=== PATIENT | male | born 1965 | race Caucasian/White ===

== ENCOUNTER 2019-02-17 13:15 | Inpatient (IN) | payer MEDICAID, SELFPAY ==
[2019-02-17] VITALS (68 sets, daily range): BP systolic 52–119; BP diastolic 32–63; PULSE 52–122; RESP 11–20; TEMP 36.8–37.2; O2SAT 87–98
--- NOTE | 2019-02-17 13:18 | NUR.NOTE ---
Nursing Note: pt has been experiencing SOB since last night when EMS states when they arrived PT was sating at 100% on 2 L pt switched to 1L and o2 sat leveled of to 98% pt currently on RA for past 15 min and o2 at 94% lung sounds diminished. noted 2+ pitting edema bilaterally in legs
--- NOTE | 2019-02-17 13:19 | ED.GENADUL_ITS ---
Discharge Plan Disposition Patient Disposition: [facility] INPATIENT Condition: Serious Discharge Details Chief Complaint: SOB Clinical Impression: Anasarca, CHF (congestive heart failure) Primary Care Provider: [facility] ED Provider: Netta Salgado Home Meds and New Rx's Prescriptions: No Action atorvastatin 40 mg Tablet 40 mg PO HS RF: 0 acetaminophen 325 mg Tablet 325 mg PO Q6H PRNRF: 0 carvedilol 3.125 mg Tablet 3.125 mg PO BID RF: 0 citalopram 20 mg Tablet 20 mg PO DAILY AM RF: 0 furosemide [Lasix] 80 mg Tablet 160 mg PO BID RF: 0 docusate sodium [Colace] 100 mg Capsule 10 mg PO BOLUSMAXRATE RF: 0 Eliquis 5 mg Tablet 5 mg PO BID RF: 0 polyethylene glycol 3350 [Miralax] 17 gram Powder In Packet 17 g PO DAILY AM RF: 0 metolazone 5 mg Tablet 5 mg PO BID RF: 0 metolazone 5 mg Tablet 5 mg PO ONCE RF: 0 levothyroxine 25 mcg Tablet 25 mcg PO DAILY RF: 0 levothyroxine 200 mcg Tablet 200 mcg PO DAILY RF: 0 pregabalin [Lyrica] 200 mg Capsule 200 mg PO TID RF: 0 Protein Nutritional Shake Liquid 1 ml RF: 0 sennosides [senna] 8.6 mg Tablet 2 mg PO PRN PRNRF: 0 nystatin [Nystop] 100,000 unit/gram Powder TOPICAL DAILY RF: 0 Medical Decision Making Patient is a 53-year-old male, currently residing [facility], with chief complaint of shortness of breath. Patient has been at their residence for the past 4 days. Was recently discharged from [facility] where he reports he was hospitalist for 4 weeks with CHF exacerbation. Patient has history of hyperlipidemia, hypertension, diastolic CHF, hepatitis C, chronic kidney disease, hypothyroidism, malnutrition, venous stasis, chronic liver failure, diabetes with peripheral neuropathy. Patient is anticoagulated on Eliquis secondary to elevated d-dimer. Currently on carvedilol. They are following a strict fluid restriction to 1.5 L daily and monitoring the patient's fluid overload. They report that over the initial 2 days there, patient had gained approximately 5.5 pounds. The rate of weight gain has slowed down however, over the course of last night, the patient has become increasingly dyspneic. He reports it is much worse when laying supine and made it difficult for him to sleep last night. Has notable swelling with weeping of the bilateral lower extremities. Patient reports that today the swelling in the legs has decreased. Also has had swelling in the scrotum and abdomen. Has self-reported chronic right upper extremity edema as well. Denies any fevers or chills. No cough. Reports that at this time his shortness of breath is a feeling improved. Reported to have O2 of 86% on room air at the halfway, responded well to 2 L nasal cannula. Brought in via EMS on 2 L nasal cannula On exam, patient appears chronically ill. He is speaking in full sentences and does not appear to be acutely respiratory distress at this time. Crackles and diminished lung sounds. He does have a crescendo decrescendo systolic murmur and displaced PMI on cardiac exam. He has good distal pulses but notable edema in the right upper extremity, bilateral lower externally's. Pulses are equal bilaterally in upper and lower extremities. No palpable cord to suggest DVT. Abdomen is firm and edematous with pitting edema as well. He has notable scrotal swelling. Patient does appear very fatigued. He is a poor historian and is not able to give me much of his past medical history. He does report that they did perform an echo while at [place]. We have requested the records. Will obtain EKG and labs. He is not currently requiring any nasal cannula and is maintaining oxygen mid 90s EKG was reviewed by Dr. Lopez. Patient is noted to have low voltage and incomplete LBBB, frequent ectopic beats. Rate 76. No acute ischemic changes. Reviewed labs from [place]. Of note, patient similar presentation to the emergency department. Left popliteal vein on ultrasound was equivocal for thrombosis. Was unable to do CTA secondary to renal function. Did have a VQ scan on 01/28/2019 which did not show evidence of PE. Patient is noted to have protein C deficiency and will be chronically anticoagulated. CT was performed 02/07/2019 at that time, patient had atelectasis and bilateral pleural effusions, small left size moderate in the right. During the admission, patient had anasarca with evidence of severe volume overload and acute becomes a heart. Echo was performed on 12/10/2018. At that time LV function was performed with an EF of 55. He notes mild dilation in size. LV function preserved with apical hypokinesis. Left atrium moderately dilated, right atrium severely dilated. Mild aortic stenosis with a valve area of 1.7 1.8 cm, peak gradient 24. PA pressure is normal. Ascending aorta is mildly dilated size of 3.8 cm, this is no change from previous. Did note mildly dilated LV at 5.9 cm with concentric LVH. Global systolic function preserved. Posterior lateral apex hypokinetic. Inferoseptal wall mildly hypokinetic. CXR reviewed by Dr. Dubois who called to discuss results. Large bilateral effusions, cardiomegally, large amount of pulmonary edema. Labs reviewed. No leukocytosis. Patient is anemic at 11.1. INR is within normal limits. Carbon dioxide is elevated at 37.3. He does not have an anion gap. BUN is 122, do not comparison. We will request lab from [facility]. Creatinine is 2. GFR 34. Calcium 7.8, will replenish calcium gluconate. AST is 9, ALT is less than 6. Patient's alk phos is 51, albumin 2.4. BNP is 11,500. Troponin less than 0.05. TSH is elevated but free T4 within normal limits. Discussed these findings with the patient. With a recent echo showing fairly maintained ejection fraction, I am unclear as to where the source of his anasarca is. I am concerned with the low ALT and AST that this may be cirrhotic liver. Patient does have known history of CAD, and unclear as if he has had treatment for this. He is responding well to Lasix. Has received 40 mg thus far. Will give another 40. Patient receiving calcium gluconate. Do not feel the patient is safe to go back to [facility] at this time with his clearly deteriorating state. Further evaluation, and determination of the underlying source of his anasarca is appropriate. I am unclear as to why he is having a unilateral upper extremity edema, concern for possible DVT in the right upper extremity. I do not see that they have performed an ultrasound of the upper extremity as directed. Plan for admission. Do not see any imaging of the patient liver or abdomen. Consult with Dr. Shaver who agrees to admission. He came to evaluate the patient in the department and will admit to ICU HPI General Mode of arrival: EMS . Date/Time Provider Initiated Documentation: 02/17/19 13:19 . Limitations to Documentation: no limitations . Information obtained by: patient, family, EMS and RN notes reviewed . HPI Narrative: Patient is a 53-year-old male who resides at [facility], presenting today with chief complaint of dyspnea on exertion that began last night. Patient is currently being treated for CHF after recent hospitalization. He is working with physical therapy to regain his strength. Patient is currently on Lasix to help with his persistent edema. Patient has gained approximately 6 pounds since admission to [facility] 5 days ago. He was initially on 80 mg of Lasix twice daily but was increased to 162 days ago. The weight gain has decreased but the shortness of breath began to increase in severity last night. He denies any chest pain. No fevers. Denies any cough. Patient is anticoagulated on Eliquis as he has a protein C deficiency. Has been taking his medications as prescribed. Patient is fairly unclear as to his medi barb history. Related Data Home Medications Medication Instructions Recorded Confirmed acetaminophen 325 mg PO Q6H PRN 02/17/19 02/17/19 apixaban [Eliquis] 5 mg PO BID 02/17/19 02/17/19 atorvastatin 40 mg PO HS 02/17/19 02/17/19 carvedilol 3.125 mg PO BID 02/17/19 02/17/19 citalopram 20 mg PO DAILY AM 02/17/19 02/17/19 docusate sodium [Colace] 10 mg PO BOLUSMAXRATE 02/17/19 02/17/19 food supplemt, lactose-reduced 1 ml 02/17/19 [Protein Nutritional Shake] furosemide [Lasix] 160 mg PO BID 02/17/19 02/17/19 levothyroxine 25 mcg PO DAILY 02/17/19 02/17/19 levothyroxine 200 mcg PO DAILY 02/17/19 02/17/19 metolazone 5 mg PO BID 02/17/19 02/17/19 metolazone 5 mg PO ONCE 02/17/19 02/17/19 nystatin [Nystop] TOPICAL DAILY 02/17/19 polyethylene glycol 3350 [Miralax] 17 g PO DAILY AM 02/17/19 02/17/19 pregabalin [Lyrica] 200 mg PO TID 02/17/19 02/17/19 sennosides [senna] 2 mg PO PRN PRN 02/17/19 02/17/19 Allergies Allergy/AdvReac Type Severity Reaction Status Date / Time No Known Allergies Allergy Unverified 02/17/19 13:39 Review of Systems Constitutional Reports as per HPI, Denies chills, Denies fever(s), Denies headache(s), Denies lethargy and Denies poor appetite Eyes Denies change in vision ENT Denies dizziness and Denies headache(s) Cardiovascular Reports as per HPI, Denies chest pain, Denies chest pain at rest, Denies chest pain with activity, Denies syncope, Denies rapid heart rate, Reports pedal edema, Reports edema, Denies irregular heart rhythm, Denies lightheadedness, Denies radiating jaw, neck or arm pain, Denies palpitations, Reports dyspnea, Reports dyspnea on exertion, Reports orthopnea and Reports paroxysmal nocturnal dyspnea Respiratory Reports as per HPI, Denies chest congestion, Denies cough, Denies pain on inspiration, Denies pain with cough, Reports dyspnea, Reports dyspnea on exertion and Denies wheezing Gastrointestinal Reports as per HPI, Denies abdominal pain, Denies diarrhea, Denies nausea and Denies vomiting Genitourinary Denies system reviewed and no additional complaints, except as docu (denies change in urinary habits) Musculoskeletal Reports as per HPI and Denies back pain Integumentary/Breasts Reports as per HPI and Denies rash Neurologic Reports as per HPI, Denies dizziness, Denies syncope and Denies headache(s) Endocrine Denies palpitations Allergic/Immunologic Denies wheezing [facility] Medical History Acute embolism and thrombosis of unspecified deep veins of left distal lower extremity (Acute) Acute embolism and thrombosis of unspecified deep veins of right lower extremity (Acute) Cardiomyopathy (Acute) Chronic diastolic (congestive) heart failure (Acute) Chronic kidney disease, unspecified (Acute) Chronic viral hepatitis C (Acute) Constipation, unspecified (Acute) Hereditary and idiopathic neuropathy (Acute) Hypothyroidism (Chronic) Liver disease, unspecified (Acute) skilled nursing (current) use of anticoagulants (Acute) Pleural effusion, not elsewhere classified (Acute) Type 2 diabetes mellitus without complication (Acute) Social History (Reviewed 02/17/19 @ 16:51 by JERARDO Medina Smoking/Tobacco Use Status: Current every day Tobacco Type: cigarettes Alcohol Intake: former Drug use: Occasionally Substance use type: marijuana Do you feel safe at home: Yes Do you feel safe in your relationship?: Yes Exam Const General: cooperative, comfortable, no acute distress, well developed, frail appearing and ill appearing chronically Nutritional Appearance: malnourished and overweight (Patient appears very edematous face is cachectic) Orientation: alert, awake and oriented x3 Limitations: altered mental status HENMT Head: normal to inspection Ears: hearing grossly normal bilaterally Mouth: moist mucous membranes Chest Chest: normal inspection of the chest, normal palpation of entire chest wall and no crepitus Resp Effort & Inspection: normal respiratory effort, able to speak in complete sentences and no respiratory distress Auscultation: crackles bilaterally throughout, diminished lung sounds bilaterall y in the lower lung link, no rales, no rhonchi and no wheezes Cardio Rate: regular rate Rhythm: regular rhythm and abnormal rhythm with ectopic beats Heart Sounds: S1 normal, S2 normal and murmur systolic decrescendo, crescendo and soft GI Inspection: edema, obesity, no visible herniation, no visible pulsation and No caput medusae present Palpation: firm (Abdomen is firm with pitting edema), no guarding, not rigid and nontender Scrotum: edematous bilaterally Skin General skin exam: no rashes or lesions noted Trauma: no lacerations or abrasions Neuro General: alert, awake and oriented x3 Cognition: normal cognition Speech: speech normal Gait: gait abnormal (Unable to ambulate unassisted at this time) Extrem General: normal capillary refill, no calf tenderness and edema (Patient has bilateral lower extremity pitting edema ) Laterality: bilateral (as well as pitting edema in the right upper extremity) Psych Appearance: grossly normal and well kempt Mental Status: mental status grossly normal Speech and Movement: speech and movement normal
[2019-02-17 13:53] LABS: Abs Immature Grans 0.01 k/cumm (0.0-0.09); Absolute Basophil Count 0.01 k/cumm (0.0-0.2); Absolute Eosinophil Count 0.09 k/cumm (0.0-0.7); Absolute Lymphocyte Count 1.33 k/cumm (1.2-3.4); Absolute Monocyte Count 0.49 k/cumm (0.11-0.7); Absolute Neutrophil Count 3.06 k/cumm (1.2-6.7); Basophils % 0.2; Eosinophils % 1.8; HCT 36.7 % (40.0-50.0); HGB 11.1 g/dL (13.5-17.5); Immature Grans % 0.2; Lymphocytes % 26.7; Mean Corp. HGB Concentration 30.2 g/dL (32.0-36.0); Mean Corpuscular Hemoglobin 31.2 pg (27.0-33.0); Mean Corpuscular Volume 103.1 fL (80-95); Mean Platelet Volume 12.4 fL (8.0-11.0); Monocytes % 9.8; Neutrophils % 61.3; Platelet Count 187 x1000/uL (130-400); RBC 3.56 m/cumm (4.50-6.00); RBC Distribution Width 14.9 % (11.8-14.1); White Blood Cell Count 4.99 k/cumm (4.4-10.8)
--- NOTE | 2019-02-17 14:00 | DI.RAD_ITS ---
SYMPTOM/DIAGNOSIS: SOB AP AND LATERAL CHEST: The heart is enlarged. There are large bilateral pleural effusions. There are diffuse bilateral intrapulmonary interstitial infiltrates. The findings are consistent with CHF.
[2019-02-17] MEDS: Furosemide 40 MG/4 ML VIAL IVP ×2 (14:07→16:10)
[2019-02-17 14:19] LABS: AST 9 U/L (15-37); Albumin 2.4 g/dL (3.4-5.0); Alkaline Phosphatase 51 U/L (46-116); Anion Gap 4.7 mmol/L (3-11); Bilirubin, Total 0.4 mg/dL (0.2-1.0); CO2 37.3 mmol/L (21.0-32.0); CREATININE 2.02 mg/dL (0.70-1.30); Calcium 7.8 mg/dL (8.5-10.1); Chloride 100 mmol/L (98-107); Estimated GFR 34.86 (mL/min/1.73m2); Glucose 138 mg/dL (70-100); Magnesium 2.3 mg/dL (1.8-2.4); NT-proBNP 11522 pg/mL; Potassium 4.1 mmol/L (3.5-5.1); Sodium 142 mmol/L (136-145); TSH (W/Ref FT4) 5.01 uIU/mL (0.36-3.74)
[2019-02-17 14:28] LABS: INR 1.1 (0.9-1.1); PTT Activated 26.2 sec (21.0-31.4); Prothrombin Time 11.4 sec (9.3-11.0)
[2019-02-17 14:31] LABS: BUN 122 mg/dL (7-18); Troponin I < 0.05 ng/mL (0.00-0.06)
[2019-02-17 14:32] LABS: ALT < 6 U/L (16-63)
[2019-02-17 14:49] LABS: FREE T4 1.04 ng/dL (0.76-1.46)
[2019-02-17] MEDS: Calcium Gluconate 4.65 MEQ/10 ML VIAL 4.65 MG IVP (16:10)
--- NOTE | 2019-02-17 17:08 | W.PM.HP.N ---
Date of service: 02/17/19 Time of Service: 17:10 Assessment and Plan (1) Anasarca: Current visit: Yes Status: Acute Etiology is not clear from information presently available. Echocardiogram from December, performed at [facility], showed preserved LV function, preserved RV function with mild hypokinesis only, no major valvular disease. Notation made that an echo from March 2018 showed an EF of 45 to 50% with wall motion abnormalities. Perhaps he has an ischemic cardiomyopathy? He has a history of untreated hepatitis C but no label of cirrhosis, no imaging studies have shown large ascites, no history to suggest GI bleed from varices. He is not known to have nephrotic range proteinuria, his BUN is elevated disproportionately above his creatinine likely due to efforts at aggressive diuresis. Is unclear why aggressive diuresis with oral medications is failing. It is unknown if he has had recurrent DVTs or pulmonary embolism, seems unlikely given chronic anticoagulation with apixaban. Lyrica may be contributing some to his edema. From a diagnostic standpoint will arrange for echocardiogram and ultrasound of liver. Therapeutically I am placing him on a heparin drip given his renal insufficiency and uncertainty of adequate anticoagulation with apixaban. I am placing him on a furosemide drip. I am going to continue his outpatient dose of carvedilol. Monitor clinical response, renal function and electrolytes. (2) Acute exacerbation of congestive heart failure: Current visit: Yes Status: Acute Diagnostic work-up and management as noted above (3) Acute kidney injury superimposed on chronic kidney disease: Current visit: Yes Status: Acute Abdominal ultrasound to assess for any obstruction. Certainly has a large prerenal component with efforts at diuresis. Check urinalysis. Follow urine output, BUN and creatinine by lab. (4) Diabetic peripheral neuropathy: Current visit: Yes Status: Acute Presently minimally symptomatic. Taper Lyrica down, possibly discontinue. Monitor for exacerbation of symptoms. (5) Protein C deficiency: Current visit: Yes Status: Acute In light of acute on chronic kidney disease I am placing him on a heparin drip. (6) Chronic viral hepatitis C: Current visit: Yes Status: Acute Untreated. Unknown if he has cirrhosis. Albumin is low, INR a little bit off, transaminase levels and bilirubin unremarkable. Ultrasound to be obtained. No history of upper GI bleed. Unknown if he has varices. Continue carvedilol in the event that he does have portal hypertension. (7) Type 2 diabetes mellitus without complication: Current visit: Yes Status: Acute By patient report, recent blood sugars have been doing fine on no medication. He had been on metformin, developed GI side effects. He has been on no medication recently. Check hemoglobin A1c. Monitor fingerstick blood sugars with low-dose short acting insulin on sliding scale until we get a better sense of what his blood sugar trends are. (8) Hypothyroidism: Current visit: Yes Status: Chronic He is on a somewhat high dose of levothyroxine but TSH is elevated but free T4 is within population norm. I am not making any change in his thyroid dose at this time. History of Present Illness Chief Complaint: Shortness of breath Narrative: 53-year-old man transferred from [facility] re[facility] to the emergency room because of increasing shortness of breath and orthopnea over the past 1 to 2 days. He has been a resident at [facility] re[facility] for only 3 days, having been transferred from [facility] following 3, approximately 2-week each, admissions for anasarca. Records are limited and include diagnoses of decompensated chronic heart failure, unspecified cardiomyopathy, diastolic CHF, untreated hepatitis C, hypothyroidism, type 2 diabetes, neuropathy, renal insufficiency. His most recent hospitalization, from January 24 through February 10, included bilateral lower extremity ultrasounds, equivocal for a popliteal vein thrombosis on the left. VQ scan on January 28 had no evidence of pulmonary embolism. He was found to have protein C deficiency and it was chosen to anticoagulate him at that point. He had a chest CT February 07 showing bilateral pleural effusions small in the left moderate on the right. He was diuresed with a furosemide drip and then metolazone was added because of lack of response. He had a CT scan of the abdomen pelvis February 07 showing anasarca, bilateral pleural effusions but no significant ascites. He has hepatitis C RNA of 8890 with no referral yet for treatment of chronic hep C. He did not require any medications for controlling his diabetes. He has a chronic diabetic neuropathy for which she has been on Lyrica for many months. His furosemide dose was doubled to 160 mg twice daily in the past 2 days and metolazone increased to 5 mg twice daily he has not lost any weight with these changes and has developed increased shortness of breath and orthopnea. He has had no chest pains, no productive cough. He does not think there has been any change in his volume or frequency of urination. He is having daily bowel movements. He has never had any blood in his stool as far as he knows. He has not had any recent fevers. No reports of melena. He was never told that he has cirrhosis. He is never had upper GI bleed. He thinks he acquired hepatitis C decades ago from IV drug use. He has not had any IV drug use for decades. He was a former binge drinker on weekends only. He is being admitted now for further evaluation as to the etiology of his anasarca and treatment thereof. Review of Systems Review of Systems No choking episodes. No trouble swallowing. No dyspepsia or dysphagia. No productive cough. No anginal type chest pains. No palpitations. No abdominal pain. No nausea, reports appetite excellent. No diarrhea, daily bowel movements. No blood in stool. No dysuria. No hematuria. Chronic swelling in the lower extremities with a few small open areas on the right and left shins. No overt bleeding. Legs feel very heavy. Bottom of his feet numb. Formally they were burning. Lyrica seems to have helped decrease the discomfort. He is walking some with a walker, slowly. All systems reviewed & are unremarkable except as noted in HPI and below PFSH Medical History (Updated 02/17/19 @ 17:15 by David Shaver MD) Acute embolism and thrombosis of unspecified deep veins of left distal lower extremity (Acute) Acute embolism and thrombosis of unspecified deep veins of right lower extremity (Acute) Anasarca (Acute) Cardiomyopathy (Acute) Chronic diastolic (congestive) heart failure (Acute) Chronic kidney disease, unspecified (Acute) Chronic viral hepatitis C (Acute) Constipation, unspecified (Acute) Diabetic peripheral neuropathy (Acute) Hereditary and idiopathic neuropathy (Acute) Hypothyroidism (Chronic) Liver disease, unspecified (Acute) intermodal dispatcher (current) use of anticoagulants (Acute) Pleural effusion, not elsewhere classified (Acute) Protein C deficiency (Acute) Type 2 diabetes mellitus without complication (Acute) Family History (Updated 02/17/19 @ 17:33 by David Shaver MD) Other Protein C deficiency Social History (Updated 02/17/19 @ 17:34 by David Shaver MD) Smoking/Tobacco Use Status: Current every day Tobacco Type: cigarettes Alcohol Intake: former Drug use: Occasionally Substance use type: marijuana What is your relationship status?: never Panel score (0-1 are the most socially isolated patients): 0 Do you feel safe at home: Yes Do you feel safe in your relationship?: Yes 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 Medications Medication Instructions Recorded Confirmed Type acetaminophen 325 mg PO Q6H PRN 02/17/19 02/17/19 History apixaban [Eliquis] 5 mg PO BID 02/17/19 02/17/19 History atorvastatin 40 mg PO HS 02/17/19 02/17/19 History carvedilol 3.125 mg PO BID 02/17/19 02/17/19 History citalopram 20 mg PO DAILY AM 02/17/19 02/17/19 History docusate sodium [Colace] 10 mg PO BOLUSMAXRATE 02/17/19 02/17/19 History food supplemt, lactose-reduced 1 ml 02/17/19 History [Protein Nutritional Shake] furosemide [Lasix] 160 mg PO BID 02/17/19 02/17/19 History levothyroxine 25 mcg PO DAILY 02/17/19 02/17/19 History levothyroxine 200 mcg PO DAILY 02/17/19 02/17/19 History metolazone 5 mg PO BID 02/17/19 02/17/19 History metolazone 5 mg PO ONCE 02/17/19 02/17/19 History nystatin [Nystop] TOPICAL DAILY 02/17/19 History polyethylene glycol 3350 [Miralax] 17 g PO DAILY AM 02/17/19 02/17/19 History pregabalin [Lyrica] 200 mg PO TID 02/17/19 02/17/19 History sennosides [senna] 2 mg PO PRN PRN 02/17/19 02/17/19 History Allergies Allergy/AdvReac Type Severity Reaction Status Date / Time No Known Allergies Allergy Unverified 02/17/19 13:39 Exam Narrative Exam Narrative: Chronically ill-appearing man, cachectic face but grossly edematous torso and extremities lying on stretcher, able to speak in full sentences and in no acute respiratory distress. Temperature 36.8 blood pressure 87/43 (reviewing [facility] notes, blood pressure fluctuates between 80 and 100 systolic) pulse 52 SaO2 on room air 93%, weight 153 kg. Eyes are a bit sunken, sclera anicteric. Edentulous, no oral lesions visible. Neck veins mildly distended to the lower quarter of the neck bilaterally. No carotid bruits heard. Diminished breath sounds at both bases with dullness to percussion, crackles in the midlung link, better aeration in the superior posterior lung link. Regular heart rhythm with 2/6 systolic ejection murmur right upper sternal border and apex, no diastolic murmur. I do not hear any S3. He has pitting edema to the lower chest wall down to his feet, progressively larger edema more distally. Bowel sounds are present. I cannot appreciate liver edge because of the abdominal wall edema. There is no shifting dullness can appreciate. He has massive edema of the scrotum and lower extremities with superficial erosions on the anterior shins but no serous fluid leaking now. His right arm has 3-4+ edema in his left arm 1-2+ with normal pulses at the wrist. Both hands are warm. Antigravity power in the upper extremities, he can move his legs but has difficulty lifting them due to the weight from edema. He has limited dorsiflexion of the left foot which she states is chronic from an ankle injury. Diminished light touch sensation in both feet. No DTRs elicited anywhere. Requires assistance to sit up. He knows he is in the hospital in [facility] and why. Results EKG shows a sinus rhythm with PVCs, incomplete left bundle branch block, low voltage, no appreciable change from the copy of ECG we have from January 24, 2019 done at [facility]. Chest x-ray cardiomegaly, poor inspiration, bilateral pleural effusions and increased interstitial markings compatible with congestive heart failure. There may be a large hiatal hernia present? Labs : 02/17/19 13:48 02/17/19 13:48 Laboratory Results - last 24 hr 02/17/19 02/17/19 02/17/19 13:40 13:48 13:48 WBC RBC Hgb Hct MCV MCH MCHC RDW Plt Count MPV Immature Gran % Neutrophils % Lymphocytes % Monocytes % Eosinophils % Basophils % Absolute Neutrophils Absolute Lymphocytes Absolute Monocytes Absolute Eosinophils Absolute Basophils PT 11.4 H INR 1.1 APTT 26.2 Sodium 142 Potassium 4.1 Chloride 100 Carbon Dioxide 37.3 H Anion Gap 4.7 BUN 122 H* Creatinine 2.02 H Estimated GFR/1.73 m2 34.86 Glucose 138 H Calcium 7.8 L Magnesium Cancelled 2.3 Total Bilirubin 0.4 AST 9 L ALT < 6 L Alkaline Phosphatase 51 Troponin I < 0.05 NT-Pro-B Natriuret Pep Cancelled 67254 H Total Protein 7.0 Albumin 2.4 L TSH 5.01 H Free T4 1.04 02/17/19 02/17/19 13:48 13:48 WBC 4.99 RBC 3.56 L Hgb 11.1 L Hct 36.7 L MCV 103.1 H MCH 31.2 MCHC 30.2 L RDW 14.9 H Plt Count 187 MPV 12.4 H Immature Gran % 0.2 Neutrophils % 61.3 Lymphocytes % 26.7 Monocytes % 9.8 Eosinophils % 1.8 Basophils % 0.2 Absolute Neutrophils 3.06 Absolute Lymphocytes 1.33 Absolute Monocytes 0.49 Absolute Eosinophils 0.09 Absolute Basophils 0.01 PT INR APTT Sodium Potassium Chloride Carbon Dioxide Anion Gap BUN Creatinine Estimated GFR/1.73 m2 Glucose Calcium Magnesium Total Bilirubin AST ALT Alkaline Phosphatase Troponin I NT-Pro-B Natriuret Pep Total Protein Albumin TSH Cancelled Free T4 Last Vital Signs Temp 36.8 C 02/17/19 13:22 Pulse 52 L 02/17/19 15:01 Resp 14 02/17/19 15:01 BP 87/43 L 02/17/19 15:01 Pulse Ox 93 L 02/17/19 15:01
[2019-02-17 21:41] LABS: Bilirubin Negative (Negative); Blood Negative (Negative); Clarity Clear (Clear); Glucose Negative (Negative); Ketones Negative (Negative); Leukocyte Esterase Negative (Negative); Nitrite Negative (Negative); Urobilinogen 0.2 EU/dL (Up TO 0.2); pH 5.5 (5-8)
[2019-02-17] MEDS: Pregabalin 100 MG CAP PO (21:47)
[2019-02-17] MEDS: Atorvastatin 40 MG TAB PO (21:47)
[2019-02-17] MEDS: Acetaminophen 325 MG TAB 650 MG PO (22:05)
[2019-02-18] VITALS (74 sets, daily range): BP systolic 66–113; BP diastolic 29–63; PULSE 48–96; RESP 10–21; TEMP 36.6–37.8; O2SAT 90–98
[2019-02-18 01:38] LABS: PTT Activated 46.3 sec (21.0-31.4)
[2019-02-18] MEDS: Levothyroxine 100 MCG TAB 200 MCG PO (06:14)
[2019-02-18] MEDS: Normal Saline Flush 10 ML SYR IVP (06:14)
[2019-02-18] MEDS: Levothyroxine 25 MCG TAB PO (06:14)
[2019-02-18 07:03] LABS: HCT 33.3 % (40.0-50.0); HGB 9.6 g/dL (13.5-17.5); Mean Corp. HGB Concentration 28.8 g/dL (32.0-36.0); Mean Corpuscular Hemoglobin 29.9 pg (27.0-33.0); Mean Corpuscular Volume 103.7 fL (80-95); Mean Platelet Volume 13.2 fL (8.0-11.0); Platelet Count 183 x1000/uL (130-400); RBC 3.21 m/cumm (4.50-6.00); RBC Distribution Width 14.8 % (11.8-14.1); White Blood Cell Count 5.97 k/cumm (4.4-10.8)
[2019-02-18 07:10] LABS: Anion Gap 5.1 mmol/L (3-11); CO2 34.9 mmol/L (21.0-32.0); CREATININE 2.08 mg/dL (0.70-1.30); Calcium 7.5 mg/dL (8.5-10.1); Chloride 100 mmol/L (98-107); Glucose 95 mg/dL (70-100); Sodium 140 mmol/L (136-145)
[2019-02-18 07:18] LABS: Hemoglobin A1C 5.9 % (4.5-6.2)
[2019-02-18 07:24] LABS: PTT Activated 88.1 sec (21.0-31.4)
--- NOTE | 2019-02-18 08:30 | DI.US_ITS ---
SYMPTOM/DIAGNOSIS: ANASARCA, HEP C, ? CIRRHOSIS? ABDOMINAL ULTRASOUND: 02/18 Ultrasound examination was performed according to the usual protocol, the examination was technically limited due to the patient's body habitus. Large portions of the liver were nonvisualized. The liver appears mildly enlarged. Note is made of cholelithiasis. There is no gallbladder wall thickening or pericholecystic fluid collection. No biliary dilatation seen. Pancreas is unremarkable in appearance although not well visualized. The left kidney is nonvisualized. Right kidney grossly unremarkable with no obvious hydronephrosis. Spleen is incompletely visualized and may be enlarged. CONCLUSION: Very limited study. Probable hepatosplenomegaly. Cholelithiasis without gallbladder wall thickening or pericholecystic fluid collection to suggest acute process.
[2019-02-18] MEDS: Citalopram 20 MG TAB PO (09:28)
[2019-02-18] MEDS: Pregabalin 100 MG CAP PO ×3 (09:28→21:00)
--- NOTE | 2019-02-18 09:30 | PHARADMIT ---
Addendum entered by Luis Patricia III 02/23/19 13:39: Pharmacy Note Subjective MD attempting to transfer patient to [facility], once bed can be obtained. Patient continues to 3rd space. Albumen given yesterday Objective BP-95/30 SCr-181 BUN 148 H Lytes,WBC,Plts-OK H&H-9.1/31.1 WGT-144.6 Kkg BM today Assessment Continue Bumax drip. I&Os (- 6 Liters/24hrs) Plan Patient awaiting bed and transfer Addendum entered by Luis Patricia III 02/22/19 14:26: Pharmacy Note Subjective Hx of Hypothyroidism,untreated HepC, Diabetes & CKD. presents with cardiomyopathy & Diastolic CHF. Continus to third space despite 5 daays for Bumex drip. MD consider that he might be experiencing an ADR to Lyrica, Lyrica has been dc'd. Objective BP-99/45 SCr-1.83 BUN-143H Phos-5.7H H&H,WBC,Plts-OK Wgt-147.1kg BM Today Assessment Bumex continues (I&O: -1500 today) Plan Watch BP, I&Os, SCr,BUN, Phos & wgt. Addendum entered by Gina Pedro 02/21/19 15:50: Pharmacy Note Subjective Objective BP 92/43, Scr 2.06 Assessment BP in 70s systolic this AM -- bumex was held and BP improved to the 90s, will reattempt to resume in afternoon, may need low dose pressors if hypotension continues Plan Continue to monitor vitals, continue diuresis as BP allows Addendum entered by Gina Pedro 02/20/19 11:14: Pharmacy Note Subjective Objective BP 101/51, HR 50-60's, afebrile, echo 50-55, SCr 2.07 (down), BUN 130, wt down 1kg, ptt 37.9 sec, H&H 9.3/31.8 Assessment Bumex infusion continues @ 1mg/hr (4ml/hr), Heparin drip is to be DC'd today and eliquis will be restarted -- drip running at 2350u/hr, wanted to increase to 2600u/hr this am but informed nurse that 2500u/hr is the maximum rate Plan Will transition back to eliquis today @1999, (heparin stop time 1999 confirmed) Monitor anticoag labs Continue to monitor I/O, weight, renal function Will be seen by cardio today Addendum entered by Sonali Sibley 02/19/19 14:42: Pharmacy Note Subjective Objective BP 105/54 HR 40-50's, Temp 37.8 yesterday, currently afebrile, Echo EF 50-55% Weight up 2.8kg overnight, I/O positive Lytes good, SCr up 2.24, BUN very high 127, BG 110 Assessment Bumex infusion continues @ 1mg/hr (4ml/hr), IVF's dc'd...bag#2 hung @ 0930 today and we will make bag#3 made in case they run out before we open tomorrow (BUD: 24hrs) -pt has codi (IV fluids were being given to keep BP up) Heparin infusion continues Lyrica dose reduced and will be tapered, likely contributing factor to edema (4-16% peripheral edema listed as ADR to Lyrica) Plan Will return to [facility] when ready, should transition back to Eliquis when Heparin drip dc'd Follow renal function, weight, I/O Original Note: Admission Pharmacy Clinical Review ANASARCA, CHF, PAOLA (Hep-C) Code Status DNR/DNI Current Weight Wgt-147.7 kg Renally Cleared and Narrow Therapeutic Index Meds CrCl~51 mL/min Meds-OK QTc Value / Action Taken QTc-490 (Lasix-CR Celexa-KR) BP Control, Fever BP-95/57 Tmax- 37.0C Electrolytes reviewed Na-140 K+4.0 Mag-2.3 DVT Prophylaxis Heparin drip, Opiate Usage / Scheduled Bowel Regimen Ordered No Yes Plt/SCr for Heparin / Enoxaparin Plts-183 SCr-2.08 INR for Warfarin INR-1.1 H/H stable, WBC/Bands H&H- 9.6/33.3 WBC-5.97 Antibiotic appropriateness none Cultures and Sensitivities [id number] Surgical ABX d/c within 24 hr na DM control / Insulin Dosing BG-95 [id number]-9.9% ASpart Heart Failure (Check EF%) (SEBASTIAN's, B-Block, Diuretics) Coreg, Lasix Drip IV to PO Switch No Home Meds Reviewed Yes Home Meds Not Ordered Eliquis,Metolazone, Nystatin, Senna Comments
--- NOTE | 2019-02-18 09:50 | MERGE_ITS ---
*[facility]* *[facility]* [address] [place] [address] Date of study: 02/18/2019 Transthoracic Echocardiography M-mode, complete 2D, complete spectral Doppler, and color Doppler *STUDY CONCLUSIONS* Summary: 1. Left ventricle: The cavity size was moderately dilated. Wall thickness was normal. Systolic function was at the lower limits of normal. The estimated ejection fraction was 50-55%. Wall motion was normal; there were no regional wall motion abnormalities. 2. Ventricular septum: Septal motion showed paradoxical motion. 3. Aortic valve: Mildly calcified annulus. Trileaflet; mildly thickened, mildly calcified leaflets. 4. Mitral valve: There was mild regurgitation. 5. Left atrium: The atrium was severely dilated. 6. Right ventricle: The cavity size was moderately dilated. Wall thickness was normal. Systolic function was moderately reduced. 7. Right atrium: The atrium was severely dilated. 8. Tricuspid valve: There was moderate regurgitation. 9. Pulmonary arteries: Pulmonary systolic pressure was mildly increased. PA peak pressure: 45mm Hg (S). 10. Pericardium, extracardiac: A trivial pericardial effusion was identified posterior to the heart. There was a right pleural effusion. There was a left pleural effusion. *PATIENT PRESENTATION* Height: 193cm (76in ) S/D Pressure: 102 / 51 Weight: 149.7kg (329.3lb ) BSA: 2.89m^2 Test start time: 10:00 AM. Test stop time: 11:00 AM. CONSULTING David Shaver MD ORDERING David Shaver MD REFERRING David Shaver MD PERFORMING Unknown PERFORMING [facility] WOOD VENEER TAPER RT Joon (R)(CT), RDCS *PROCEDURE DATA* Procedure information: The patient was identified by two identifiers. This study was interpreted by [facility]. Pertinent images and digital data are archived for permanent storage and are available for subsequent review. No prior study was available for comparison. Study status: STAT. Transthoracic echocardiography. M-mode, complete 2D, complete spectral Doppler, and color Doppler. A Transthoracic Echocardiogram was performed. Scanning was performed from the parasternal, apical, subcostal, and suprasternal notch acoustic windows. Images were obtained using an [id number] cardiac ultrasound machine. Study completion: The patient tolerated the procedure well. History: PMH: CHF ANASARCA. *CARDIAC ANATOMY* Left ventricle: The cavity size was moderately dilated. Wall thickness was normal. Systolic function was at the lower limits of normal. The estimated ejection fraction was 50-55%. Wall motion was normal; there were no regional wall motion abnormalities. Aortic valve: Mildly calcified annulus. Trileaflet; mildly thickened, mildly calcified leaflets. Mobility was not restricted. Doppler: Transvalvular velocity was within the normal range. There was no stenosis. There was no significant regurgitation. VTI ratio of LVOT to aortic valve: 0.45. Valve area (VTI): 2cm^2. Indexed valve area (VTI): 0.7cm^2/m^2. Peak velocity ratio of LVOT to aortic valve: 0.43. Valve area (Vmax): 1.9cm^2. Indexed valve area (Vmax): 0.7cm^2/m^2. Mean velocity ratio of LVOT to aortic valve: 0.49. Valve area (Vmean): 2.2cm^2. Indexed valve area (Vmean): 0.8cm^2/m^2. Mean gradient (S): 12.4mm Hg. Peak gradient (S): 20.2mm Hg. Aorta: Aortic root: The aortic root was normal in size. Ascending aorta: The ascending aorta was at upper normal limits. Mitral valve: Structurally normal valve. Mobility was not restricted. Doppler: Transvalvular velocity was within the normal range. There was no evidence for stenosis. There was mild regurgitation. Valve area by pressure half-time: 3.4cm^2. Indexed valve area by pressure half-time: 1.2cm^2/m^2. Peak gradient (D): 3.3mm Hg. Left atrium: The atrium was severely dilated. Right ventricle: The cavity size was moderately dilated. Wall thickness was normal. Systolic function was moderately reduced. Ventricular septum: Septal motion showed paradoxical motion. Pulmonic valve: Poorly visualized. Doppler: Transvalvular velocity was within the normal range. There was no evidence for stenosis. There was trivial regurgitation. Tricuspid valve: Structurally normal valve. Doppler: Transvalvular velocity was within the normal range. There was no evidence for stenosis. There was moderate regurgitation. Pulmonary artery: Poorly visualized. Pulmonary systolic pressure was mildly increased. Right atrium: The atrium was severely dilated. Pericardium: A trivial pericardial effusion was identified posterior to the heart. Systemic veins: Inferior vena cava: Well visualized. The vessel was patent and dilated. The respirophasic diameter changes were blunted (less than 50%), consistent with elevated central venous pressure. Pleura: There was a right pleural effusion. There was a left pleural effusion. Measurements Left ventricle Value Reference LV ID, ED, PLAX (H) 6.6 cm 3.5 - 6.0 LV ID, ES, PLAX (H) 4.9 cm 2.1 - 4.0 LV PW thickness, ED, PLAX 0.9 cm LV end-diastolic volume, 1-p A2C 219 ml LV ejection fraction, 1-p A2C 49 % LV end-diastolic volume, 1-p A4C 179 ml LV ejection fraction, 1-p A4C 55 % LV e', lateral 0.166 m/sec LV E/e', lateral 5 LV e', medial 0.118 m/sec LV E/e', medial 8 LV e', average 0.142 m/sec LV E/e', average 6 Ventricular septum Value Reference IVS thickness, ED, PLAX 0.9 cm LVOT Value Reference LVOT ID, A-P 2.4 cm LVOT area 4.5 cm^2 LVOT peak velocity, S 0.96 m/sec LVOT mean velocity, S 0.83 m/sec LVOT VTI, S 24.6 cm LVOT peak gradient, S 3.7 mm Hg LVOT mean gradient, S 2.9 mm Hg Stroke volume (SV), LVOT DP 110 ml Stroke index (SV/bsa), LVOT DP 38 ml/m^2 Aortic valve Value Reference Aortic valve peak velocity, S 2.2 m/sec Aortic valve mean velocity, S 1.7 m/sec Aortic valve VTI, S 55.0 cm Aortic mean gradient, S 12.4 mm Hg Aortic peak gradient, S 20.2 mm Hg VTI ratio, LVOT/AV 0.45 Aortic valve area, VTI 2 cm^2 Velocity ratio, peak, LVOT/AV 0.43 Aortic valve area, peak velocity 1.9 cm^2 Velocity ratio, mean, LVOT/AV 0.49 Aortic valve area, mean velocity 2.2 cm^2 Aortic valve area/bsa, mean velocity 0.8 cm^2/m^2 Aorta Value Reference Aortic root ID, ED 3.1 cm Ascending aorta ID, A-P, S 3.5 cm Left atrium Value Reference LA ID, A-P, ES 6.6 cm LA ID/bsa, A-P (H) 2.3 cm/m^2 <=2.2 LA volume/bsa, ES, 1-p A4C 70 ml/m^2 LA volume, ES, 2-p 167 ml LA volume/bsa, ES, 2-p 58 ml/m^2 LA/aortic root ratio 2.13 Mitral valve Value Reference Mitral E-wave peak velocity 0.91 m/sec Mitral A-wave peak velocity 0.48 m/sec Mitral deceleration time 223 ms 150 - 230 Mitral pressure half-time 65 ms Mitral peak gradient, D 3.3 mm Hg Mitral E/A ratio, peak 1.88 Mitral valve area, PHT, DP 3.4 cm^2 Pulmonary veins Value Reference Pulmonary vein peak velocity, S 0.4 m/sec Pulmonary vein peak velocity, D 0.53 m/sec Pulmonary vein velocity ratio, peak, 0.75 S/D Pulmonary arteries Value Reference PA pressure, S, DP (H) 45 mm Hg <=30 Tricuspid valve Value Reference Tricuspid regurg peak velocity 2.8 m/sec Tricuspid peak RV-RA gradient 30.3 mm Hg Right atrium Value Reference RA area, ES, A4C (H) 30.7 cm^2 8.3 - 19.5 Systemic veins Value Reference Estimated CVP 15 mm Hg Right ventricle Value Reference RV pressure, S, DP (H) 45 mm Hg <=30 Legend: (L) and (H) janessa values outside specified reference range. I have personally reviewed the images and have reviewed and edited the reported findings. Electronically signed by Reginald Phillip 02/18/2019 14:09
[2019-02-18] MEDS: SODIUM CHLORIDE 0.45% 1,000 ML 80 ML IV (12:06)
[2019-02-18 12:46] LABS: PTT Activated 31.9 sec (21.0-31.4)
--- NOTE | 2019-02-18 14:21 | PGE_ITS ---
Date of Service Date of service: 02/18/19 Time of Service: 14:21 Assessment and Plan (1) Anasarca: Current visit: Yes Status: Acute Reviewing his [place] information as well as testing we have done here this does not appear to be due to cirrhosis and does not seem likely to be due to chronic kidney disease. I am still waiting for results of echocardiogram. If there is no indication of systolic or diastolic dysfunction on his echocardiogram then I am left attributing his edema to Lyrica. The dose has been cut in half and this can be tapered further over the next week. I am going to continue efforts at diuresis, switching to IV bumetanide. I am giving him some IV fluids as well because of his low blood pressure and likely prerenal azotemia. Hopefully we can mobilize some of the tissue fluid. (2) Acute exacerbation of congestive heart failure: Current visit: Yes Status: Acute Awaiting echocardiogram to determine how much of his edema and presentation is related to cardiomyopathy/heart failure. Management as above. (3) Acute kidney injury superimposed on chronic kidney disease: Current visit: Yes Status: Acute Reviewing his outpatient records indicates there has been a steady increase in his BUN and creatinine with more aggressive efforts at diuresis. I think that his abnormal lab work is largely iatrogenic. Nevertheless I am going to still push diuretics over the next 12 to 24 hours. If renal function is worsening and we are unable to mobilize fluid may need to consider tertiary care transfer for nephrology consultation. (4) Diabetic peripheral neuropathy: Current visit: Yes Status: Acute Lyrica has been cut in half. Plan on gradual taper to off and monitor for exacerbation of his dysesthesias in his feet. (5) Protein C deficiency: Current visit: Yes Status: Acute He continues on a heparin drip. I would like to see renal function moving closer to normal before transitioning back to apixaban. (6) Chronic viral hepatitis C: Current visit: Yes Status: Acute Untreated. CT scan in [place] and ultrasound here does not show a small shrunken liver, in fact probably the opposite. He does not have ascites. It is unclear if he has significant liver scarring from untreated hepatitis C. (7) Type 2 diabetes mellitus without complication: Current visit: Yes Status: Acute Fingerstick blood sugars are doing fine and A1c at 5.9% suggest diabetes control with his diet is adequate. I think we can back off on the frequency of checking his blood sugars. (8) Hypothyroidism: Current visit: Yes Status: Chronic He is on a somewhat high dose of levothyroxine but TSH is elevated but free T4 is within population norm. I am not making any change in his thyroid d ose at this time. (9) Hypotension: Current visit: Yes Status: Acute I think he is probably intravascularly depleted with all the efforts at diuresis and as manifested by high urine specific gravity and prerenal azotemia. I am going to give him half normal saline fluid and monitor blood pressure, urine output, renal function. Subjective Interval history since last seen: Mr. De Jesus has no complaints. He feels better than he did yesterday and and is breathing comfortably lying in bed about 25 degrees recumbency. He denies pain anywhere. Denies dysuria. He is been incontinent of urine, and measured urine output has been limited despite continuous furosemide infusion. Midday I change this to bumetanide continuous infusion and perhaps he has had a little bit more urine output. His blood pressures have remained soft but he is mentating. Denies short of breath or chest discomfort. He has had no dysrhythmias on telemetry monitoring. More legible copies of his recent hospitalization at [facility] have been obtained. He had CT scan chest abdomen and pelvis which showed some atelectasis in the lungs, a small left and moderate right-sided pleural effusion, mild cardiomegaly with trace effusion, liver appeared large, not shrunken or cirrhotic. No comment about splenomegaly and no ascites present. He had duplex scans of his legs, equivocal for noncompressibility of the lower leg deep venous system. All of the studies compromised because of substantial body wall/subcutaneous tissue edema. His abdominal ultrasound here did not show any ascites. Difficult study because of body habitus. Perhaps liver and spleen enlarged? No evidence of hydronephrosis or obstruction. Urinalysis by dipstick shows concentrated urine. His BUN and creatinine have changed little from yesterday, both slightly higher than yesterday's admission values. His hemoglobin A1c is 5.9% his hemoglobin has dropped from 11.1-9.6. Exam Narrative Exam Narrative: Sleeping but easily aroused. He does not appear in any respiratory distress. He has been afebrile. Blood pressures ranging from 70s systolic to occasionally low 100, mostly in the upper 80s over 50s. Sinus rhythm on monitor with frequent PVCs. SaO2 on 2 L 97%. Weight down slightly at 147.7 kg. Continues to have sunken eyes and cheeks, no scleral icterus. Venous pulsations at the sternal notch. Lungs with diminished breath sounds both bases, bronchial somewhat on the left, a few crackles in the lower lung link and clear in the upper lung link. No wheezing. Heart tones are soft no S3 or S4, 2/6 systolic ejection murmur loudest at the apex but also heard at the right upper sternal border, no diastolic murmur. Bowel sounds present but somewhat diminished. No tenderness in the abdomen. His abdominal wall edema is such that I cannot appreciate if there is any fluid or organomegaly in the abdomen. 4+ edema to the lower chest continues. No redness in the lower extremities. He has continued inability to dorsiflex the left foot which is chronic. There is still asymmetry of edema of his upper extremities with the right arm 4+ in left arm 1-2+. He has antigravity power in the upper extremities. Requires assistance to sit up. His legs are too heavy for him to lift much off the bed. Objective Objective Clinical Data: Abnormal lab results Echocardiogram pending 02/17/19 02/17/19 02/18/19 Range/Units 13:40 13:48 01:07 RBC (4.50-6.00) m/cumm Hgb (13.5-17.5) g/dL Hct (40.0-50.0) % MCV (80-95) fL MCHC (32.0-36.0) g/dL RDW (11.8-14.1) % MPV (8.0-11.0) fL PT 11.4 H (9.3-11.0) sec APTT 46.3 H D (21.0-31.4) sec Carbon Dioxide 37.3 H (21.0-32.0) mmol/L BUN 122 H* (7-18) mg/dL Creatinine 2.02 H (0.70-1.30) mg/dL Glucose 138 H (70-100) mg/dL Calcium 7.8 L (8.5-10.1) mg/dL AST 9 L (15-37) U/L ALT < 6 L (16-63) U/L NT-Pro-B Natriuret Pep 77481 H ( - 299) pg/mL Albumin 2.4 L (3.4-5.0) g/dL TSH 5.01 H (0.36-3.74) uIU/mL 02/18/19 02/18/19 02/18/19 Range/Units 06:15 06:15 06:15 RBC 3.21 L (4.50-6.00) m/cumm Hgb 9.6 L (13.5-17.5) g/dL Hct 33.3 L (40.0-50.0) % MCV 103.7 H (80-95) fL MCHC 28.8 L (32.0-36.0) g/dL RDW 14.8 H (11.8-14.1) % MPV 13.2 H (8.0-11.0) fL PT (9.3-11.0) sec APTT 88.1 H* D (21.0-31.4) sec Carbon Dioxide 34.9 H (21.0-32.0) mmol/L BUN 123 H* (7-18) mg/dL Creatinine 2.08 H (0.70-1.30) mg/dL Glucose (70-100) mg/dL Calcium 7.5 L (8.5-10.1) mg/dL AST (15-37) U/L ALT (16-63) U/L NT-Pro-B Natriuret Pep ( - 299) pg/mL Albumin (3.4-5.0) g/dL TSH (0.36-3.74) uIU/mL 02/18/19 Range/Units 12:25 RBC (4.50-6.00) m/cumm Hgb (13.5-17.5) g/dL Hct (40.0-50.0) % MCV (80-95) fL MCHC (32.0-36.0) g/dL RDW (11.8-14.1) % MPV (8.0-11.0) fL PT (9.3-11.0) sec APTT 31.9 H D (21.0-31.4) sec Carbon Dioxide (21.0-32.0) mmol/L BUN (7-18) mg/dL Creatinine (0.70-1.30) mg/dL Glucose (70-100) mg/dL Calcium (8.5-10.1) mg/dL AST (15-37) U/L ALT (16-63) U/L NT-Pro-B Natriuret Pep ( - 299) pg/mL Albumin (3.4-5.0) g/dL TSH (0.36-3.74) uIU/mL Vital Signs Temperature 36.6 C 02/18/19 12:49 Temperature Source Temporal Artery Scan 02/18/19 12:49 Pulse 70 02/18/19 12:49 Pulse 75 02/18/19 12:31 Respiratory Rate 16 02/18/19 12:49 Respiratory Effort 02/18/19 12:49 Respiratory Depth Normal 02/18/19 12:49 Respiratory Pattern Normal 02/18/19 12:49 Blood Pressure 86/55 L 02/18/19 12:49 Blood Pressure Mean 65 02/18/19 12:49 Blood Pressure Position Supine 02/17/19 13:22 Pulse Oximetry 97 02/18/19 12:49 Oxygen Delivery Method Nasal Cannula 02/18/19 12:49 Oxygen Flow Rate 2 02/18/19 12:49 Pain Level 0 02/18/19 12:49 Intake & Output 02/17/19 02/18/19 02/18/19 23:59 11:59 23:59 Intake Total 306.467 / 809.153 8134.299 / 1058.816 57.517 / 1058.816 Output Total 425 / 425 400 / 400 Balance -118.533 / -144.083 5128.299 / 658.816 -342.483 / 658.816 Weight 150 kg 147.7 kg Intake: IV 6.467 / 6.467 351.299 / 408.816 57.517 / 408.816 Oral 300 / 300 650 / 650 Output: Urine 425 / 425 400 / 400 Other: Urine Color Yellow Light [place] Urine Appearance Clear Urine Odor None Strong Comment Pt has not voided since midnight. Dr. Shaver is aware and wants it monitored. Pt refuses kincaid catheter Stool Occult Blood Negative Stool Size Large Stool Characteristics Soft Formed Voiding Methods Urinal Urinal Laboratory Results WBC 5.97 k/cumm (4.4-10.8) 02/18/19 06:15 RBC 3.21 m/cumm (4.50-6.00) L 02/18/19 06:15 Hgb 9.6 g/dL (13.5-17.5) L 02/18/19 06:15 Hct 33.3 % (40.0-50.0) L 02/18/19 06:15 MCV 103.7 fL (80-95) H 02/18/19 06:15 MCH 29.9 pg (27.0-33.0) 02/18/19 06:15 MCHC 28.8 g/dL (32.0-36.0) L 02/18/19 06:15 RDW 14.8 % (11.8-14.1) H 02/18/19 06:15 Plt Count 183 x1000/uL (130-400) 02/18/19 06:15 MPV 13.2 fL (8.0-11.0) H 02/18/19 06:15 Immature Gran % 0.2 02/17/19 13:48 61.3 02/17/19 13:48 26.7 02/17/19 13:48 9.8 02/17/19 13:48 1.8 02/17/19 13:48 0.2 02/17/19 13:48 Absolute Neutrophils 3.06 k/cumm (1.2-6.7) 02/17/19 13:48 Absolute Lymphocytes 1.33 k/cumm (1.2-3.4) 02/17/19 13:48 Absolute Monocytes 0.49 k/cumm (0.11-0.7) 02/17/19 13:48 Absolute Eosinophils 0.09 k/cumm (0.0-0.7) 02/17/19 13:48 Absolute Basophils 0.01 k/cumm (0.0-0.2) 02/17/19 13:48 PT 11.4 sec (9.3-11.0) H 02/17/19 13:40 INR 1.1 (0.9-1.1) 02/17/19 13:40 APTT 31.9 sec (21.0-31.4) H D 02/18/19 12:25 Sodium 140 mmol/L (136-145) 02/18/19 06:15 Potassium 4.0 mmol/L (3.5-5.1) 02/18/19 06:15 Chloride 100 mmol/L (98-107) 02/18/19 06:15 Carbon Dioxide 34.9 mmol/L (21.0-32.0) H 02/18/19 06:15 5.1 mmol/L (3-11) 02/18/19 06:15 BUN 123 mg/dL (7-18) H* 02/18/19 06:15 2.08 mg/dL (0.70-1.30) H 02/18/19 06:15 33.70 (mL/min/1.73m2) 02/18/19 06:15 Glucose 95 mg/dL (70-100) 02/18/19 06:15 5.9 % (4.5-6.2) 02/18/19 06:15 Calcium 7.5 mg/dL (8.5-10.1) L 02/18/19 06:15 Magnesium 2.3 mg/dL (1.8-2.4) 02/17/19 13:48 Magnesium Cancelled 02/17/19 13:48 0.4 mg/dL (0.2-1.0) 02/17/19 13:48 AST 9 U/L (15-37) L 02/17/19 13:48 ALT < 6 U/L (16-63) L 02/17/19 13:48 51 U/L (46-116) 02/17/19 13:48 < 0.05 ng/mL (0.00-0.06) 02/17/19 13:48 NT-Pro-B Natriuret Pep 37796 pg/mL (-299) H 02/17/19 13:48 NT-Pro-B Natriuret Pep Cancelled 02/17/19 13:48 7.0 g/dL (6.4-8.2) 02/17/19 13:48 2.4 g/dL (3.4-5.0) L 02/17/19 13:48 TSH 5.01 uIU/mL (0.36-3.74) H 02/17/19 13:48 TSH Cancelled 02/17/19 13:48 Free T4 1.04 ng/dL (0.76-1.46) 02/17/19 13:48 Yellow (Yellow) 02/17/19 20:00 Clear (Clear) 02/17/19 20:00 5.5 (5-8) 02/17/19 20:00 Ur Specific Denio 1.010 (1.005-1.025) 02/17/19 20:00 Negative mg/dL (Negative) 02/17/19 20:00 Negative mg/dL (Negative) 02/17/19 20:00 Negative (Negative) 02/17/19 20:00 Negative (Negative) 02/17/19 20:00 Negative (Negative) 02/17/19 20:00 0.2 EU/dL (Up TO 0.2) 02/17/19 20:00 Ur Leukocyte Esterase Negative (Negative) 02/17/19 20:00 Negative mg/dL (Negative) 02/17/19 20:00
[2019-02-18 14:52] LABS: CREATININE 2.18 mg/dL (0.70-1.30); Calcium 7.6 mg/dL (8.5-10.1); Chloride 99 mmol/L (98-107); Estimated GFR 31.92 (mL/min/1.73m2); Glucose 142 mg/dL (70-100); Potassium 4.2 mmol/L (3.5-5.1); Sodium 137 mmol/L (136-145); Vitamin B12 229 pg/mL (193-986)
[2019-02-18 15:00] LABS: BUN 121 mg/dL (7-18)
--- NOTE | 2019-02-18 16:45 | INITIAL_ITS ---
- If Service Date Differs Date of service: 02/18/19 Time of Service: 16:45 Care Management Initial Assess REASON FOR HOSPITALIZATION:: Anasacra, PAOLA, CHF PAST MEDICAL HISTORY/PAST SURGICAL HISTORY:: Hypothyroidism, DM neuropathy, DM type 2, Hepatitis C, CHF. Anasacra. Protein C deficiency. PREVIOUS FUNCTIONAL STATUS/SOCIAL/FAMILY SUPPORTS:: Homar is disabled until recently lived with his sister in [place], [place]. 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 He uses a walker to ambulate, he was at [facility] until last then [facility]hab stay. He is unsure of where he will go after the rehab. Homar is hopeful to return to independent living once he has completed rehab. CURRENT FUNCTIONAL STATUS:: Homar is alert and engaged is assessment with CM. He reports he has been in the hospital for the past month. Homar states he has been unable to ambulate well due to his neuropathy and swelling in his legs and feet. Homar wants to return to the rehab when he is ready. He continues to be hypotensive and needing ICU level of care. ADVANCE DIRECTIVES:: None on file patient states he thinks he has one in [place] Has patient been provided with information about the portal?: Yes Did the patient sign up for the portal?: No (Not at this time) CODE STATUS:: DNR/DNI INSURANCE COVERAGE / FINANCIAL ISSUES:: Medicaid CURRENT HOME/COMMUNITY SERVICES/EQUIPMENT:: Currently resides at [facility] PRIMARY CARE PHYSICIAN:: ([place]) POTENTIAL DISCHARGE NEEDS:: Return to [facility] PATIENT/FAMILY EDUCATION NEEDS:: Discharge education, limitations and follow up plan of care. ANTICIPATED BARRIERS TO DISCHARGE:: None TRANSPORTATION:: Via wheelchair van [facility] PLAN:: Homar remains ICU level of care, he remains hypotensive at this time. Homar will plan to return to [facility] when he is medically ready. CM to continue to provide support discharge planning and disposition.
[2019-02-18 17:13] LABS: Folate 6.9 ng/mL (8.6-20.0)
[2019-02-18] MEDS: Insulin Aspart 300 UNITS/3 ML PEN SC (17:15)
[2019-02-18 19:21] LABS: PTT Activated 99.2 sec (21.0-31.4)
[2019-02-18] MEDS: SODIUM CHLORIDE 0.45% 1,000 ML 150 ML IV (20:24)
[2019-02-18] MEDS: Acetaminophen 325 MG TAB 650 MG PO (21:00)
[2019-02-18] MEDS: Zolpidem 5 MG TAB PO (21:00)
[2019-02-18] MEDS: Atorvastatin 40 MG TAB PO (21:00)
[2019-02-19] VITALS (34 sets, daily range): BP systolic 89–119; BP diastolic 40–62; PULSE 47–95; RESP 11–18; TEMP 36.4–37.3; O2SAT 92–100
[2019-02-19 02:50] LABS: HCT 32.2 % (40.0-50.0); HGB 9.4 g/dL (13.5-17.5); Mean Corp. HGB Concentration 29.2 g/dL (32.0-36.0); Mean Corpuscular Hemoglobin 30.4 pg (27.0-33.0); Mean Corpuscular Volume 104.2 fL (80-95); Mean Platelet Volume 12.4 fL (8.0-11.0); Platelet Count 166 x1000/uL (130-400); RBC 3.09 m/cumm (4.50-6.00); RBC Distribution Width 14.7 % (11.8-14.1); White Blood Cell Count 5.51 k/cumm (4.4-10.8)
[2019-02-19 02:59] LABS: Anion Gap 2.2 mmol/L (3-11); CO2 35.8 mmol/L (21.0-32.0); CREATININE 2.24 mg/dL (0.70-1.30); Calcium 7.7 mg/dL (8.5-10.1); Chloride 99 mmol/L (98-107); Estimated GFR 30.94 (mL/min/1.73m2); Glucose 110 mg/dL (70-100); Potassium 4.3 mmol/L (3.5-5.1); Sodium 137 mmol/L (136-145)
[2019-02-19 03:02] LABS: PTT Activated 30.8 sec (21.0-31.4)
[2019-02-19 03:18] LABS: BUN 127 mg/dL (7-18)
[2019-02-19] MEDS: Levothyroxine 100 MCG TAB 200 MCG PO (05:47)
[2019-02-19] MEDS: Levothyroxine 25 MCG TAB PO (05:47)
[2019-02-19] MEDS: Polyethylene Glycol 3350 17 GM PACKET PO (08:50)
[2019-02-19] MEDS: Docusate Sodium 100 MG CAP PO (08:51)
[2019-02-19] MEDS: LORazepam 2 MG/ML VIAL 1 MG IVP (08:51)
[2019-02-19] MEDS: Pregabalin 100 MG CAP PO ×2 (08:52→13:38)
[2019-02-19] MEDS: Lidocaine 2% Jelly 11 ML SYR UR (08:52)
[2019-02-19] MEDS: Citalopram 20 MG TAB PO (08:52)
[2019-02-19 09:31] LABS: BUN 123 mg/dL (7-18)
[2019-02-19 10:39] LABS: PTT Activated 32.7 sec (21.0-31.4)
--- NOTE | 2019-02-19 12:30 | PDOC.CMPRO ---
- If Service Date Differs Date of service: 02/19/19 Time of Service: 12:30 Care Management Progress Note S/O: Homar was lying in his bed with his eyes closed when CM entered the room. A nurse was in the room getting a finger stick during the conversation between CM and Homar. He stated that he was uncomfortable due to a procedure he had earlier. CM asked if he knew what his plan of care was, which he was unsure about. He reported that he came to [facility] from [facility], and he said he was happy there and he wants to return. CM had a conversation with admissions at [facility], who stated that he has a bed hold currently for Homar and that he is agreeable to Homar returning when he is medically cleared. CM will continue to follow. A: Homar is a 53 year old male admitted to the ICU for Anasarca, CHF & PAOLA on 02/17/2019. P: Homar remains ICU level of care. His provider is watching his fluids, and he continues to receive IV diuretics. CM anticipates Homar will return to [facility] once medically cleared via their w/c van. CM to continue to provide support, discharge planning and disposition.
[2019-02-19] MEDS: Insulin Aspart 300 UNITS/3 ML PEN SC (12:35)
[2019-02-19] MEDS: Acetaminophen 325 MG TAB 650 MG PO ×2 (13:38→17:13)
--- NOTE | 2019-02-19 15:14 | CHAPLAIN ---
Homar was lying in bed when I visited. He told me about being admitted here from [facility], and that he's from the [facility]. He is unsure of his future plan. He said he had catheter in and he think it's working. He said he'd never had one before and was unsure about how it was going to work out. When I asked about family or friends who might visit, he said someone may be down to visit him this weekend. When I asked if I could help with anything, he asked me to check on the strawberries and raspberries he'd order, a big bowl of them. The fruit had just been delivered to the ICU for him.
--- NOTE | 2019-02-19 16:25 | PGE_ITS ---
Date of Service Date of service: 02/19/19 Time of Service: 16:25 Assessment and Plan (1) Anasarca: Current visit: Yes Status: Acute Etiology still remains unclear. By echocardiogram he does have some right ventricular dysfunction and moderate tricuspid regurgitation. His PA pressures are somewhat high at 45. He does appear to be fluid overloaded. He received IV fluids overnight at 150 cc/h. That has been stopped. He continues on a Bumex infusion 1 mg/h. Urine output is adequate. We are able to measure it much more accurately with a Carreno catheter in place. Continue to follow closely. (2) Acute kidney injury superimposed on chronic kidney disease: Current visit: Yes Status: Acute Creatinine has bumped to 2.24. We will continue to monitor it closely given the diuresis we are trying to achieve. His blood pressures remain somewhat soft although I am suspicious that the reading is not accurate because of the amount of peripheral edema he has. (3) Chronic viral hepatitis C: Current visit: Yes Status: Acute At this point evidence of synthetic function remains good. It does not appear to be overt liver failure causing the anasarca. (4) Hypothyroidism: Current visit: Yes Status: Chronic Continues on high-dose levothyroxine replacement. (5) Type 2 diabetes mellitus without complication: Current visit: Yes Status: Acute Continues on his usual insulin regimen blood sugars are well controlled (6) Protein C deficiency: Current visit: Yes Status: Acute Still holding his oral anticoagulant. He is on a heparin infusion until w e can be satisfied that his fluid status is stabilized. (7) Discharge planning issues: Current visit: Yes Status: Acute Continue to monitor in the intensive care unit with soft blood pressures, worsening anasarca, right heart failure, bladder outlet obstruction, heparin in fusion. He remains complicated and requires close monitoring. He is DNR/DNI. Subjective Interval history since last seen: Patient offers no new complaints today. No cough no shortness of breath. He does note that he is more swollen. He is somewhat groggy today. Eating and drinking okay. Large bowel movement today. He had a Carreno catheter placed with lidocaine and lorazepam for anxiety. Exam Narrative Exam Narrative: He is lying quietly nearly supine in bed. His eyes are closed but he is easily arousable. He is very anxious. His lungs are generally clear on the right and left. Heart sounds are regular. No significant murmur. His abdomen is overall soft and nontender. The subcutaneous tissues laterally bulged outward and show a lot of subcu edema. The lower extremities have massive edema from the hips all the way down to his feet. 4+. The scrotal area is markedly swollen with a nearly buried penis. Neurologically he is moving all extremities. No focal deficits. Objective Objective Clinical Data: Abnormal lab results 02/18/19 02/18/19 02/18/19 Range/Units 06:15 14:00 18:20 RBC (4.50-6.00) m/cumm Hgb (13.5-17.5) g/dL Hct (40.0-50.0) % MCV (80-95) fL MCHC (32.0-36.0) g/dL RDW (11.8-14.1) % MPV (8.0-11.0) fL APTT 99.2 H* D (21.0-31.4) sec Carbon Dioxide (21.0-32.0) mmol/L Anion Gap (3-11) mmol/L BUN 123 H* (7-18) mg/dL Creatinine (0.70-1.30) mg/dL Glucose (70-100) mg/dL Calcium (8.5-10.1) mg/dL Folate 6.9 L (8.6-20.0) ng/mL 02/19/19 02/19/19 02/19/19 Range/Units 02:40 02:40 09:45 RBC 3.09 L (4.50-6.00) m/cumm Hgb 9.4 L (13.5-17.5) g/dL Hct 32.2 L (40.0-50.0) % MCV 104.2 H (80-95) fL MCHC 29.2 L (32.0-36.0) g/dL RDW 14.7 H (11.8-14.1) % MPV 12.4 H (8.0-11.0) fL APTT 32.7 H (21.0-31.4) sec Carbon Dioxide 35.8 H (21.0-32.0) mmol/L Anion Gap 2.2 L (3-11) mmol/L BUN 127 H* (7-18) mg/dL Creatinine 2.24 H (0.70-1.30) mg/dL Glucose 110 H (70-100) mg/dL Calcium 7.7 L (8.5-10.1) mg/dL Folate (8.6-20.0) ng/mL Vital Signs Temperature 36.4 C L 02/19/19 11:30 Temperature Source Temporal Artery Scan 02/19/19 08:00 Pulse 54 L 02/19/19 13:00 Pulse 64 02/19/19 13:01 Respiratory Rate 15 02/19/19 13:01 Respiratory Effort Non-Labored 02/19/19 11:30 Respiratory Depth Normal 02/19/19 11:30 Respiratory Pattern Normal 02/19/19 11:30 Blood Pressure 105/54 L 02/19/19 13:00 Blood Pressure Mean 66 02/19/19 13:00 Blood Pressure Position Right Lateral 02/18/19 15:56 Pulse Oximetry 100 02/19/19 13:01 Oxygen Delivery Method Nasal Cannula 02/19/19 11:30 Oxygen Flow Rate 2 02/19/19 11:30 Pain Level 0 02/19/19 11:30 Intake & Output 02/18/19 02/19/19 02/19/19 23:59 11:59 23:59 Intake Total 1638.484 / 2639.783 1481.158 / 1721.158 240 / 1721.158 Output Total 1035 / 1035 1250 / 1700 450 / 1700 Balance 603.484 / 1604.783 231.158 / 21.158 -210 / 21.158 Weight 150.5 kg Intake: IV 918.484 / 2481.484 9640.158 / 1181.158 Oral 720 / 1370 300 / 540 240 / 540 Output: Urine 1035 / 1035 1250 / 1700 450 / 1700 Other: Urine Color Yellow Pale Pale Yellow Urine Appearance Clear Clear Clear Urine Odor Normal Strong Comment Bumex drip infusing per MAR Carreno in place draining clear, pale yellow urine. Urometer in place Stool Occult Blood Negative Stool Size Small Moderate Stool Characteristics Soft Soft Formed Voiding Methods Urinal Urinal Laboratory Results WBC 5.51 k/cumm (4.4-10.8) 02/19/19 02:40 RBC 3.09 m/cumm (4.50-6.00) L 02/19/19 02:40 Hgb 9.4 g/dL (13.5-17.5) L 02/19/19 02:40 Hct 32.2 % (40.0-50.0) L 02/19/19 02:40 MCV 104.2 fL (80-95) H 02/19/19 02:40 MCH 30.4 pg (27.0-33.0) 02/19/19 02:40 MCHC 29.2 g/dL (32.0-36.0) L 02/19/19 02:40 RDW 14.7 % (11.8-14.1) H 02/19/19 02:40 Plt Count 166 x1000/uL (130-400) 02/19/19 02:40 MPV 12.4 fL (8.0-11.0) H 02/19/19 02:40 Immature Gran % 0.2 02/17/19 13:48 61.3 02/17/19 13:48 26.7 02/17/19 13:48 9.8 02/17/19 13:48 1.8 02/17/19 13:48 0.2 02/17/19 13:48 Absolute Neutrophils 3.06 k/cumm (1.2-6.7) 02/17/19 13:48 Absolute Lymphocytes 1.33 k/cumm (1.2-3.4) 02/17/19 13:48 Absolute Monocytes 0.49 k/cumm (0.11-0.7) 02/17/19 13:48 Absolute Eosinophils 0.09 k/cumm (0.0-0.7) 02/17/19 13:48 Absolute Basophils 0.01 k/cumm (0.0-0.2) 02/17/19 13:48 PT 11.4 sec (9.3-11.0) H 02/17/19 13:40 INR 1.1 (0.9-1.1) 02/17/19 13:40 APTT 32.7 sec (21.0-31.4) H 02/19/19 09:45 Sodium 137 mmol/L (136-145) 02/19/19 02:40 Potassium 4.3 mmol/L (3.5-5.1) 02/19/19 02:40 Chloride 99 mmol/L (98-107) 02/19/19 02:40 Carbon Dioxide 35.8 mmol/L (21.0-32.0) H 02/19/19 02:40 2.2 mmol/L (3-11) L 02/19/19 02:40 BUN 127 mg/dL (7-18) H* 02/19/19 02:40 2.24 mg/dL (0.70-1.30) H 02/19/19 02:40 30.94 (mL/min/1.73m2) 02/19/19 02:40 Glucose 110 mg/dL (70-100) H 02/19/19 02:40 5.9 % (4.5-6.2) 02/18/19 06:15 Calcium 7.7 mg/dL (8.5-10.1) L 02/19/19 02:40 Magnesium 2.3 mg/dL (1.8-2.4) 02/17/19 13:48 Magnesium Cancelled 02/17/19 13:48 0.4 mg/dL (0.2-1.0) 02/17/19 13:48 AST 9 U/L (15-37) L 02/17/19 13:48 ALT < 6 U/L (16-63) L 02/17/19 13:48 51 U/L (46-116) 02/17/19 13:48 < 0.05 ng/mL (0.00-0.06) 02/17/19 13:48 NT-Pro-B Natriuret Pep 02494 pg/mL (-299) H 02/17/19 13:48 NT-Pro-B Natriuret Pep Cancelled 02/17/19 13:48 7.0 g/dL (6.4-8.2) 02/17/19 13:48 2.4 g/dL (3.4-5.0) L 02/17/19 13:48 Vitamin B12 229 pg/mL (193-986) 02/18/19 14:00 6.9 ng/mL (8.6-20.0) L 02/18/19 14:00 TSH 5.01 uIU/mL (0.36-3.74) H 09/08/19 13:48 TSH Cancelled 02/17/19 13:48 Free T4 1.04 ng/dL (0.76-1.46) 02/17/19 13:48 Yellow (Yellow) 02/17/19 20:00 Clear (Clear) 02/17/19 20:00 5.5 (5-8) 02/17/19 20:00 Ur Specific [place] 1.010 (1.005-1.025) 02/17/19 20:00 Negative mg/dL (Negative) 02/17/19 20:00 Negative mg/dL (Negative) 02/17/19 20:00 Negative (Negative) 02/17/19 20:00 Negative (Negative) 02/17/19 20:00 Negative (Negative) 02/17/19 20:00 0.2 EU/dL (Up TO 0.2) 02/17/19 20:00 Ur Leukocyte Esterase Negative (Negative) 02/17/19 20:00 Negative mg/dL (Negative) 02/17/19 20:00
[2019-02-19 17:39] LABS: PTT Activated 35.5 sec (21.0-31.4)
[2019-02-19] MEDS: Zolpidem 5 MG TAB PO (21:28)
[2019-02-19] MEDS: Atorvastatin 40 MG TAB PO (21:28)
[2019-02-20] VITALS (39 sets, daily range): BP systolic 84–118; BP diastolic 38–56; PULSE 55–91; RESP 12–25; TEMP 36.5–37.5; O2SAT 89–98
[2019-02-20 00:34] LABS: PTT Activated 39.3 sec (21.0-31.4)
[2019-02-20] MEDS: Levothyroxine 25 MCG TAB PO (06:01)
[2019-02-20] MEDS: Levothyroxine 100 MCG TAB 200 MCG PO (06:01)
[2019-02-20 07:23] LABS: HCT 31.8 % (40.0-50.0); HGB 9.3 g/dL (13.5-17.5); Mean Corp. HGB Concentration 29.2 g/dL (32.0-36.0); Mean Corpuscular Hemoglobin 29.9 pg (27.0-33.0); Mean Corpuscular Volume 102.3 fL (80-95); Mean Platelet Volume 12.4 fL (8.0-11.0); Platelet Count 171 x1000/uL (130-400); RBC 3.11 m/cumm (4.50-6.00); RBC Distribution Width 14.5 % (11.8-14.1); White Blood Cell Count 6.07 k/cumm (4.4-10.8)
[2019-02-20 07:31] LABS: PTT Activated 37.9 sec (21.0-31.4)
[2019-02-20 07:34] LABS: CREATININE 2.07 mg/dL (0.70-1.30); Calcium 7.5 mg/dL (8.5-10.1); Chloride 98 mmol/L (98-107); Estimated GFR 33.89 (mL/min/1.73m2); Glucose 97 mg/dL (70-100); Potassium 4.2 mmol/L (3.5-5.1); Sodium 138 mmol/L (136-145)
[2019-02-20 07:45] LABS: BUN 133 mg/dL (7-18)
[2019-02-20] MEDS: Citalopram 20 MG TAB PO (08:56)
[2019-02-20] MEDS: Insulin Aspart 300 UNITS/3 ML PEN SC ×2 (12:12→17:01)
--- NOTE | 2019-02-20 14:10 | PDOC.CMPRO ---
- If Service Date Differs Date of service: 02/20/19 Time of Service: 14:11 Care Management Progress Note S/O: Homar was sitting up in bed when CM entered the room. He had just finished his lunch. He stated that he was still not feeling great, he is sore all over, and that he is tired often. He confirmed that he has an ultrasound this afternoon at 2pm. He talked with CM for a while about his family- he has 4 sisters and 3 brothers and many nieces and nephews. He reported that he came to [facility] from [facility], and he said he was happy there and he wants to return. CM had a conversation with admissions at [facility], who stated that he has a bed hold currently for Homar and that he is agreeable to Homar returning when he is medically cleared. CM will continue to follow. A: Homar is a 53 year old male admitted to the ICU for Anasarca, CHF & PAOLA on 02/17/2019. P: Homar remains ICU level of care, he continues to receive IV diuretics and monitoring of fluid balance. CM anticipates Homar will return to [facility] once medically cleared via their w/c van. CM to continue to provide support, discharge planning and disposition.
--- NOTE | 2019-02-20 15:00 | DI.US_ITS ---
SYMPTOMS/DIAGNOSIS: RIGHT ARM SWELLING, ON ANTICOAGULANTS RIGHT UPPER EXTREMITY ULTRASOUND: Edema is noted in the arm. There is no localized fluid collection or drainable abscess. The internal jugular, subclavian, axillary, brachial, basilic and cephalic veins are patent. No thrombus is visible. IMPRESSION: Arm edema. No evidence of deep venous thrombosis.
--- NOTE | 2019-02-20 16:00 | PT.INIE ---
Date of service: 02/20/19 Time of Service: 15:40 PT Notes Inpatient Physical Therapy Evaluation Date: 02/21/2019 Referring Doctor: Marlen Shaver MD PT Orders: PT CONSULT: Limited ability Precautions: Fall. Standard. Activity as tolerated. Patient Profile/Admitting Diagnosis: Patient is a 53-year-old male with past medical history significant for anasarca, cardiomyopathy, congestive heart failure, and Type II DM who presented to the ED on 02/28/2019 with chief complaints of increased shortness of breath and orthopnea. Patient is diagnosed with CHF exacerbation, acute kidney injury, diabetic peripheral neuropathy, protein C deficiency, chronic viral hepatitis, Type II DM, and hypothyroidism. PMHX: Medical History (Updated 02/17/19 @ 17:15 by Marlen Shaver MD) Acute embolism and thrombosis of unspecified deep veins of left distal lower extremity (Acute) Acute embolism and thrombosis of unspecified deep veins of right lower extremity (Acute) Anasarca (Acute) Cardiomyopathy (Acute) Chronic diastolic (congestive) heart failure (Acute) Chronic kidney disease, unspecified (Acute) Chronic viral hepatitis C (Acute) Constipation, unspecified (Acute) Diabetic peripheral neuropathy (Acute) Hereditary and idiopathic neuropathy (Acute) Hypothyroidism (Chronic) Liver disease, unspecified (Acute) shelter (current) use of anticoagulants (Acute) Pleural effusion, not elsewhere classified (Acute) Protein C deficiency (Acute) Type 2 diabetes mellitus without complication (Acute) Social History/Home Situation: Patient lives with brother and [id number] in a private home with 4 steps to enter with bilateral rails. He reports that [employer], he was independent with all mobility ADL performance using his FWW. Equipment Owned/DME: FWW Subjective: Patient is agreeable to patient interview, ROM, and manual muscle testing only. He declined mobility assessment stating high anxiety and discomfort over his catheter getting pulled easily from severely swollen penile/scrotal areas. He is agreeable to first returning home to his brother's house whenever he is safe to do so and he expresses ultimate desire of returning to his own apartment with needed services in place. Objective: General Observation: Generalized swelling to B UE/LE, perineum, and trunk. Telemetry monitoring in place. Oxygen supplementation on 2L/min via NC. IV in L UE. Carreno catheter on. Mental Status: Mildly lethargic but was giving appropriate answers to questions, oriented to place, person, time, and purpose Pain: Moderate to severe pain on perineum when movement was attempted Vital Signs: 91/51 mmHg, 90 bpm, 94% on 2L via NC ROM: Right Upper Extremity: Shoulder Flexion allows up to 10 degrees. Shoulder abduction allows up to 10 degrees. Elbow flexion allows up to 20 degrees. Wrist flexion WFL. Opening and closing of hand WFL. Left Upper Extremity: Shoulder Flexion allows up to 120 degrees. Shoulder abduction allows up to 100 degrees. Elbow flexion WFL. Wrist flexion WFL. Opening and closing of hand WFL. Right Lower Extremity: Hip flexion about 10 degrees. Hip abduction about 10 degrees. Knee flexion about 10 degrees. Ankle dorsiflexion allows about 5 degrees from a fully plantarflexed position. Ankle plantarflexion about 5 degrees. Left Lower Extremity: Hip flexion WFL. Hip abduction WFL. Knee flexion WFL. Ankle dorsiflexion WFL. Ankle plantarflexion WFL. Strength: Right Upper Extremity: Shoulder flexors 2-/5. Shoulder abductors 2-/5. Elbow flexors 2-/5. Elbow extensors 2-/5. Parimutuel Ticket Checker weak but functional. Left Upper Extremity: Shoulder flexors 3+/5. Shoulder abductors 3+/5. Elbow flexors 4-/5. Elbow extensors 4-/5. Parimutuel Ticket Checker strong. Right Lower Extremity: Hip flexors 2-/5. Hip abductors 2-/5. Knee flexors 2-/5. Knee extensors 2-/5. Ankle dorsiflexors 2-/5. Ankle plantarflexors 2-/5. Left Lower Extremity:Hip flexors 2-/5. Hip abductors 2-/5. Knee flexors 2-/5. Knee extensors 2-/5. Ankle dorsiflexors 2-/5. Ankle plantarflexors 2-/5. Bed Mobility/Transfers: Unable to assess. Patient with scrotal and penile edema which causes signifcant discomofrt and axiety towards movement. Patient is highly anxious about moving as he states that his catheter hurts him with movement. Will await result of DVT exam to L UE before conducting mobility assessment. Rolling is maximum assist of 2 due to fatigue and pain. Gait: Unable to assess. Patient with scrotal and penile edema which causes signifcant discomofrt and axiety towards movement. Patient is highly anxious about moving as he states that his catheter hurts him with movement. Will await result of DVT exam to L UE before conducting mobility assessment. Balance: Static Sitting: Unable to assess Dynamic Sitting: Unable to assess Static Standing: Unable to assess Dynamic Standing: Unable to assess Special Tests: Mobility Limitations Standardized Measure [facility] AM-PAC 6 clicks Basic Mobility Inpatient Short Form: Raw Score: 6 CMS Score: 100% deficit Informed Consent/Education: Patient instructed in purpose of PT consult and plan of care. Assessment: Participation to mobility assessment is prevented by report of fatigue, shortness of breath, and discomfort and anxiety over displacing catheter from significant penile/perianal/scrotal edema. Patient presents with clinical signs and symptoms consistent with current/admitting diagnoses that have resulted to mobility limitations, gait instability, generalized weakness, and impairment of motor control as demonstrated by the following impairment level findings: 1. Decreased strength to B UE/LE major muscle groups 2. Impaired sitting/standing balance 3. Impaired activity tolerance 4. Limitation of joint range of motion in B UE/LE Impairments are contributing to the following functional limitations: 1. Dependent bed mobility skills 2. Increased dependence with transfers 3. Inability to ambulate 4. Increase completion time for mobility ADL performance 5. Increased fall risk 6. Inability to negotiate steps alone safely Patient is assessed as a 20218 high complexity based on the following: History: Patient is a 53-year-old male patient who is dagnosed with Examination: Demonstrable impairment in strength, balance, and range of motion with underlying impairments and functional limitations as documented above Presentation:Evolving Decision Makin high complexity Goals: Goals X1 week 1. Supine-Sit moderate assist 2. Sit-Supine moderate assist 3. Sit-Stand moderate assist 4. Stand-Sit moderate assist 5. Bed-Chair moderate assist 6. Chair-Bed moderate assist 7. Moderate assist of 2 for gait on level surface with use of least restrictive device for at least 30 feet without report of pain nor dyspnea 8. Fair static and dynamic standing balance/tolerance Plan of Care/Treatment Plan: 1-2x/day, 7 days/week x 1 week. Plan of care has been reviewed with the [employer] providing the service under Physical Therapy direction. Initiate Physical Therapy intervention for strengthening, bed mobility, transfers, gait, stairs, balance training, use of assistive device. DISCHARGE RECOMMENDATIONS: Patient will benefit from returning to long-term facility placement in order to progress mobility level, strength, and balance to reduce fall risk and maximize functional independence. TREATMENT CODE/TIME: 83016 x 31 minutes beginning at 15:14 PM. Thank you very much for this referral. Irma Carey PT, DPT, CLT [facility]
[2019-02-20] MEDS: Acetaminophen 325 MG TAB 650 MG PO (16:12)
--- NOTE | 2019-02-20 17:02 | W.PM.PROGNOT ---
Date of Service Date of service: 02/20/19 Time of Service: 17:03 Assessment and Plan (1) Anasarca: Current visit: Yes Status: Acute Severe anasarca appears to be responding to the Bumex infusion. Weight is down 1 kg from yesterday. Urine output is adequate. Renal function actually stabilized and improved overnight. Follow potassium and electrolytes closely. Etiology appears to be multifactorial. Discussed with his Sister Chelsea this evening. (2) Protein C deficiency: Current visit: Yes Status: Acute We will stop the heparin infusion and restart the Eliquis this evening. No evidence of DVT in the right arm by ultrasound. He remains at high risk for DVT. (3) Type 2 diabetes mellitus without complication: Current visit: Yes Status: Acute Blood sugars were well controlled on present regimen. (4) Discharge planning issues: Current visit: Yes Status: Acute Continue to monitor in the ICU. We are intensively diuresing him with the potential for marked electrolytes shifts, renal dysfunction, arrhythmia. We will ask physical therapy to see him for mobilization. Awaiting cardiology input. Subjective Interval history since last seen: Patient continues to complain of being very tired. He is not motivated to get up and move around. He complains of tightness around his joints from all the swelling. I spoke with his sister, Chelsea. During his 2-week hospitalization at [facility] he was walking the halls with physical therapy. He has had this swelling for about a year, much worse since this past summer. His usual baseline weight is about 245 pounds. His weight had increased to a high of 360 pounds. After the hospitalization at [facility] he got down to 292 pounds. There is continued concern about the swelling of his right arm. Apparently this was noticed at [facility]. He never had an ultrasound of his arm but did have ultrasounds of both lower extremities which showed no evidence of DVT. Exam Narrative Exam Narrative: On exam he is lying flat in bed with the head of bed up about 30 degrees. He stares up at the ceiling. He does not make good eye contact. He seems to be fully lucid and gives appropriate answers. He does not appear to be motivated to get up and move around. His breathing is not at all labored he has no cough. Lung sounds are grossly clear he has marked edema of the right hand and arm to the point is difficult for him to clench his fist. The left hand shows minimal edema and he moves it freely. Moving down his chest edema begins at about the lower rib cage at which point there is a flail of edema on both sides of his abdomen though the anterior abdomen does not appear all that edematous. Once going down to his legs they are an enormous with thick edema all the way down to his feet. The shins have superficial abrasions that do not appear to be oozing or draining at this time. Objective Objective Clinical Data: Abnormal lab results 02/19/19 02/20/19 02/20/19 Range/Units 17:05 00:10 06:30 RBC (4.50-6.00) m/cumm Hgb (13.5-17.5) g/dL Hct (40.0-50.0) % MCV (80-95) fL MCHC (32.0-36.0) g/dL RDW (11.8-14.1) % MPV (8.0-11.0) fL APTT 35.5 H 39.3 H (21.0-31.4) sec Carbon Dioxide 35.0 H (21.0-32.0) mmol/L BUN 133 H* (7-18) mg/dL Creatinine 2.07 H (0.70-1.30) mg/dL Calcium 7.5 L (8.5-10.1) mg/dL 02/20/19 02/20/19 02/20/19 Range/Units 06:30 06:30 14:00 RBC 3.11 L (4.50-6.00) m/cumm Hgb 9.3 L (13.5-17.5) g/dL Hct 31.8 L (40.0-50.0) % MCV 102.3 H (80-95) fL MCHC 29.2 L (32.0-36.0) g/dL RDW 14.5 H (11.8-14.1) % MPV 12.4 H (8.0-11.0) fL APTT 37.9 H 43.0 H (21.0-31.4) sec Carbon Dioxide (21.0-32.0) mmol/L BUN (7-18) mg/dL Creatinine (0.70-1.30) mg/dL Calcium (8.5-10.1) mg/dL Vital Signs Temperature 36.5 C 02/20/19 16:03 Temperature Source Temporal Artery Scan 02/20/19 16:03 Pulse 59 L 02/20/19 15:42 Pulse 90 02/20/19 15:42 Respiratory Rate 16 02/20/19 15:42 Respiratory Effort 02/20/19 16:03 Respiratory Depth Shallow 02/20/19 16:03 Respiratory Pattern Normal 02/20/19 16:03 Blood Pressure 91/51 L 02/20/19 15:42 Blood Pressure Mean 61 02/20/19 15:42 Blood Pressure Position Supine 02/20/19 16:03 Pulse Oximetry 92 L 02/20/19 14:01 Oxygen Delivery Method Nasal Cannula 02/20/19 16:03 Oxygen Flow Rate 1 02/20/19 16:03 Pain Level 3 02/20/19 16:52 Intake & Output 02/19/19 02/20/19 02/20/19 23:59 11:59 23:59 Intake Total 794.092 / 2275.250 1222.833 / 1681.833 459.0 / 1681.833 Output Total 2330 / 3795 1560 / 2110 550 / 2110 Balance -1535.908 / -1519.750 -337.167 / -428.167 -91.0 / -428.167 Weight 149.5 kg Intake: IV 194.092 / 1375.250 242.833 / 461.833 219.0 / 461.833 Oral 600 / 900 980 / 1220 240 / 1220 Output: Urine 2330 / 3795 1560 / 2110 550 / 2110 Other: Urine Color Yellow Light [place] Yellow Urine Appearance Clear Sediment Sediment Comment Kincaid in place. Some discomfort reported at insertion site. kincaid to gravity kincaid to gravity Stool Size Moderate Stool Characteristics Soft Laboratory Results WBC 6.07 k/cumm (4.4-10.8) 02/20/19 06:30 RBC 3.11 m/cumm (4.50-6.00) L 02/20/19 06:30 Hgb 9.3 g/dL (13.5-17.5) L 02/20/19 06:30 Hct 31.8 % (40.0-50.0) L 02/20/19 06:30 MCV 102.3 fL (80-95) H 02/20/19 06:30 MCH 29.9 pg (27.0-33.0) 02/20/19 06:30 MCHC 29.2 g/dL (32.0-36.0) L 02/20/19 06:30 RDW 14.5 % (11.8-14.1) H 02/20/19 06:30 Plt Count 171 x1000/uL (130-400) 02/20/19 06:30 MPV 12.4 fL (8.0-11.0) H 02/20/19 06:30 Immature Gran % 0.2 02/17/19 13:48 61.3 02/17/19 13:48 26.7 02/17/19 13:48 9.8 02/17/19 13:48 1.8 02/17/19 13:48 0.2 02/17/19 13:48 Absolute Neutrophils 3.06 k/cumm (1.2-6.7) 02/17/19 13:48 Absolute Lymphocytes 1.33 k/cumm (1.2-3.4) 02/17/19 13:48 Absolute Monocytes 0.49 k/cumm (0.11-0.7) 02/17/19 13:48 Absolute Eosinophils 0.09 k/cumm (0.0-0.7) 02/17/19 13:48 Absolute Basophils 0.01 k/cumm (0.0-0.2) 02/17/19 13:48 PT 11.4 sec (9.3-11.0) H 02/17/19 13:40 INR 1.1 (0.9-1.1) 02/17/19 13:40 APTT 43.0 sec (21.0-31.4) H 02/20/19 14:00 Sodium 138 mmol/L (136-145) 02/20/19 06:30 Potassium 4.2 mmol/L (3.5-5.1) 02/20/19 06:30 Chloride 98 mmol/L (98-107) 02/20/19 06:30 Carbon Dioxide 35.0 mmol/L (21.0-32.0) H 02/20/19 06:30 5.0 mmol/L (3-11) 02/20/19 06:30 BUN 133 mg/dL (7-18) H* 02/20/19 06:30 2.07 mg/dL (0.70-1.30) H 02/20/19 06:30 33.89 (mL/min/1.73m2) 02/20/19 06:30 Glucose 97 mg/dL (70-100) 02/20/19 06:30 5.9 % (4.5-6.2) 02/18/19 06:15 Calcium 7.5 mg/dL (8.5-10.1) L 02/20/19 06:30 Magnesium 2.3 mg/dL (1.8-2.4) 02/17/19 13:48 Magnesium Cancelled 02/17/19 13:48 0.4 mg/dL (0.2-1.0) 02/17/19 13:48 AST 9 U/L (15-37) L 02/17/19 13:48 ALT < 6 U/L (16-63) L 02/17/19 13:48 51 U/L (46-116) 02/17/19 13:48 < 0.05 ng/mL (0.00-0.06) 02/17/19 13:48 NT-Pro-B Natriuret Pep 43497 pg/mL (-299) H 02/17/19 13:48 NT-Pro-B Natriuret Pep Cancelled 02/17/19 13:48 7.0 g/dL (6.4-8.2) 02/17/19 13:48 2.4 g/dL (3.4-5.0) L 02/17/19 13:48 Vitamin B12 229 pg/mL (193-986) 02/18/19 14:00 6.9 ng/mL (8.6-20.0) L 02/18/19 14:00 TSH 5.01 uIU/mL (0.36-3.74) H 02/17/19 13:48 TSH Cancelled 02/17/19 13:48 Free T4 1.04 ng/dL (0.76-1.46) 02/17/19 13:48 Yellow (Yellow) 02/17/19 20:00 Clear (Clear) 02/17/19 20:00 5.5 (5-8) 02/17/19 20:00 Ur Specific [place] 1.010 (1.005-1.025) 02/17/19 20:00 Negative mg/dL (Negative) 02/17/19 20:00 Negative mg/dL (Negative) 02/17/19 20:00 Negative (Negative) 02/17/19 20:00 Negative (Negative) 02/17/19 20:00 Negative (Negative) 02/17/19 20:00 0.2 EU/dL (Up TO 0.2) 02/17/19 20:00 Ur Leukocyte Esterase Negative (Negative) 02/17/19 20:00 Negative mg/dL (Negative) 02/17/19 20:00
[2019-02-20] MEDS: Normal Saline Flush 10 ML SYR IVP (20:00)
[2019-02-20] MEDS: Apixaban 5 MG TAB PO (20:10)
[2019-02-20] MEDS: Atorvastatin 40 MG TAB PO (20:10)
[2019-02-20] MEDS: Zolpidem 5 MG TAB PO (20:12)
[2019-02-21] VITALS (40 sets, daily range): BP systolic 68–115; BP diastolic 30–57; PULSE 60–91; RESP 12–18; TEMP 37.1–37.5; O2SAT 87–96
[2019-02-21] MEDS: Citalopram 20 MG TAB PO (08:27)
[2019-02-21] MEDS: Levothyroxine 100 MCG TAB 200 MCG PO (08:27)
[2019-02-21] MEDS: Levothyroxine 25 MCG TAB PO (08:27)
[2019-02-21] MEDS: Normal Saline Flush 10 ML SYR IVP (08:54)
[2019-02-21 09:10] LABS: Abs Immature Grans 0.01 k/cumm (0.0-0.09); Absolute Eosinophil Count 0.12 k/cumm (0.0-0.7); Absolute Lymphocyte Count 1.54 k/cumm (1.2-3.4); Absolute Monocyte Count 0.83 k/cumm (0.11-0.7); Absolute Neutrophil Count 3.93 k/cumm (1.2-6.7); Eosinophils % 1.9; HCT 31.6 % (40.0-50.0); HGB 9.4 g/dL (13.5-17.5); Immature Grans % 0.2; Mean Corp. HGB Concentration 29.7 g/dL (32.0-36.0); Mean Corpuscular Hemoglobin 30.3 pg (27.0-33.0); Mean Corpuscular Volume 101.9 fL (80-95); Mean Platelet Volume 12.4 fL (8.0-11.0); Monocytes % 12.9; RBC Distribution Width 14.7 % (11.8-14.1); White Blood Cell Count 6.43 k/cumm (4.4-10.8)
[2019-02-21 09:11] LABS: Anion Gap 4.2 mmol/L (3-11); CO2 35.8 mmol/L (21.0-32.0); CREATININE 2.06 mg/dL (0.70-1.30); Calcium 7.6 mg/dL (8.5-10.1); Chloride 98 mmol/L (98-107); Estimated GFR 34.08 (mL/min/1.73m2); Glucose 119 mg/dL (70-100); Sodium 138 mmol/L (136-145)
[2019-02-21 09:17] LABS: BUN 136 mg/dL (7-18)
[2019-02-21 09:33] LABS: Diff Comment RBC Morph Reviewed; Hypochromasia 1+; Macrocytosis 2+; Platelet Count 185 x1000/uL (130-400)
--- NOTE | 2019-02-21 10:48 | W.PM.PROGNOT ---
Date of Service Date of service: 02/21/19 Time of Service: 10:48 Assessment and Plan Assessment and plan (1) Hypotension: Status: Acute Assessment and plan: likely due to impair cardiac out due to shifted starling curve, he reportedly worsened when IVF were given for hypotension. He also likely has basline low BP due to underlying liver disease. given manual BP in 70s systolic this morning, bumex drip was temporarily discontinued, BP improved to 90s sytolics. we will attempt to resume diueresis this afternoon. if hypotension remains an issue he may need low dose pressors. (2) Acute kidney injury superimposed on chronic kidney disease: Status: Acute Assessment and plan: cr is stable, will continue duiresis as BP alows. (3) Acute exacerbation of congestive heart failure: Status: Acute Assessment and plan: he has anormal EF although severe R atrial dilation with TR, awaiting cardiology input (4) Anasarca: Status: Acute Assessment and plan: likely multifactorial in setting impaired cardiac function, underlying liver disease, and low albumin state. UA does not show evidence nephrotic syndrome. his INR is not significantly prolonged and plt stable, however albumin which is also marker of synthetic function is very low. he had an US which showed hepatomegaly, however could consider CT for further evaluation of possible hep c induced cirrhosis. for now will continue diueresis as able. (5) Epistaxis: Status: Acute Assessment and plan: resolved with manual pressure, will continue apixiban as benefit/ouweights risk Subjective Subjective Interval history since last seen: Patient with epidosed hypotension to mid 70s systolics. asymptomatic. remains on bumex drip with good urine output. weight is up 1 kg today. denies dyspnea Exam Narrative Exam Narrative: GEN: NAD, anasarcic HEENT: NCAT, sclera anicteric CV: RRR, nl s1 and s2, diastolic murmur heard at LUSB LUNGS: normal WOB, diminished at the bashes ABD: obese. soft, NT, NABS EXT: 2+ edema of the b/l UE, 3+ edema of the b/l LE SKIN: chronic venous stasis of the b/l LE Objective Objective Clinical Data: Abnormal lab results 02/20/19 02/21/19 02/21/19 Range/Units 14:00 08:50 08:50 RBC 3.10 L (4.50-6.00) m/cumm Hgb 9.4 L (13.5-17.5) g/dL Hct 31.6 L (40.0-50.0) % MCV 101.9 H (80-95) fL MCHC 29.7 L (32.0-36.0) g/dL RDW 14.7 H (11.8-14.1) % MPV 12.4 H (8.0-11.0) fL Absolute Monocytes 0.83 H (0.11-0.7) k/cumm APTT 43.0 H (21.0-31.4) sec Carbon Dioxide 35.8 H (21.0-32.0) mmol/L BUN 136 H* (7-18) mg/dL Creatinine 2.06 H (0.70-1.30) mg/dL Glucose 119 H (70-100) mg/dL Calcium 7.6 L (8.5-10.1) mg/dL Vital Signs Temperature 37.5 C 02/21/19 08:00 Temperature Source Temporal Artery Scan 02/21/19 08:00 Pulse 62 02/21/19 10:19 Pulse 63 02/21/19 10:19 Respiratory Rate 12 02/21/19 10:19 Respiratory Effort Non-Labored 02/21/19 08:00 Respiratory Depth Normal 02/21/19 08:00 Respiratory Pattern Normal 02/21/19 08:00 Blood Pressure 98/37 L 02/21/19 10:19 Blood Pressure Mean 53 02/21/19 10:19 Blood Pressure Position Supine 02/21/19 08:00 Pulse Oximetry 93 L 02/21/19 10:19 Oxygen Delivery Method Room Air 02/21/19 09:30 Oxygen Flow Rate 0 02/21/19 09:30 Pain Level 0 02/21/19 08:00 Comment 02/21/19 09:30 Intake & Output 02/20/19 02/20/19 02/21/19 11:59 23:59 11:59 Intake Total 1222.833 / 2321.266 1098.433 / 2321.266 62.267 / 62.267 Output Total 1560 / 3310 1750 / 3310 1750 / 1750 Balance -337.167 / -988.734 -651.567 / -988.734 -1687.733 / -1687.733 Weight 149.5 kg 149.8 kg Intake: IV 242.833 / 561.266 318.433 / 561.266 62.267 / 62.267 Oral 980 / 1760 780 / 1760 Output: Urine 1560 / 3310 1750 / 3310 1750 / 1750 Other: Urine Color Light [place] Pale Straw Yellow Urine Appearance Sediment Clear Clear Comment kincaid to gravity kincaid in place. Kincaid intact and draining clear straw colored urine. Laboratory Results WBC 6.43 k/cumm (4.4-10.8) 02/21/19 08:50 RBC 3.10 m/cumm (4.50-6.00) L 02/21/19 08:50 Hgb 9.4 g/dL (13.5-17.5) L 02/21/19 08:50 Hct 31.6 % (40.0-50.0) L 02/21/19 08:50 MCV 101.9 fL (80-95) H 02/21/19 08:50 MCH 30.3 pg (27.0-33.0) 02/21/19 08:50 MCHC 29.7 g/dL (32.0-36.0) L 02/21/19 08:50 RDW 14.7 % (11.8-14.1) H 02/21/19 08:50 Plt Count 185 x1000/uL (130-400) 02/21/19 08:50 MPV 12.4 fL (8.0-11.0) H 02/21/19 08:50 Immature Gran % 0.2 02/21/19 08:50 Neutrophils % 61.0 02/21/19 08:50 Lymphocytes % 24.0 02/21/19 08:50 Monocytes % 12.9 02/21/19 08:50 Eosinophils % 1.9 02/21/19 08:50 Basophils % 0.0 02/21/19 08:50 Absolute Neutrophils 3.93 k/cumm (1.2-6.7) 02/21/19 08:50 Absolute Lymphocytes 1.54 k/cumm (1.2-3.4) 02/21/19 08:50 Absolute Monocytes 0.83 k/cumm (0.11-0.7) H 02/21/19 08:50 Absolute Eosinophils 0.12 k/cumm (0.0-0.7) 02/21/19 08:50 Absolute Basophils 0.00 k/cumm (0.0-0.2) 02/21/19 08:50 Differential Comment Rbc morph reviewed 02/21/19 08:50 RBC Morphology See below 02/21/19 08:50 Hypochromasia 1+ 02/21/19 08:50 Macrocytosis 2+ 02/21/19 08:50 PT 11.4 sec (9.3-11.0) H 02/17/19 13:40 INR 1.1 (0.9-1.1) 02/17/19 13:40 APTT 43.0 sec (21.0-31.4) H 02/20/19 14:00 Sodium 138 mmol/L (136-145) 02/21/19 08:50 Potassium 4.0 mmol/L (3.5-5.1) 02/21/19 08:50 Chloride 98 mmol/L (98-107) 02/21/19 08:50 Carbon Dioxide 35.8 mmol/L (21.0-32.0) H 02/21/19 08:50 Anion Gap 4.2 mmol/L (3-11) 02/21/19 08:50 BUN 136 mg/dL (7-18) H* 02/21/19 08:50 Creatinine 2.06 mg/dL (0.70-1.30) H 02/21/19 08:50 Estimated GFR/1.73 m2 34.08 (mL/min/1.73m2) 02/21/19 08:50 Glucose 119 mg/dL (70-100) H 02/21/19 08:50 Hemoglobin A1c 5.9 % (4.5-6.2) 02/18/19 06:15 Calcium 7.6 mg/dL (8.5-10.1) L 02/21/19 08:50 Magnesium 2.3 mg/dL (1.8-2.4) 02/17/19 13:48 Magnesium Cancelled 02/17/19 13:48 Total Bilirubin 0.4 mg/dL (0.2-1.0) 02/17/19 13:48 AST 9 U/L (15-37) L 02/17/19 13:48 ALT < 6 U/L (16-63) L 02/17/19 13:48 Alkaline Phosphatase 51 U/L (46-116) 02/17/19 13:48 Troponin I < 0.05 ng/mL (0.00-0.06) 02/17/19 13:48 NT-Pro-B Natriuret Pep 82700 pg/mL (-299) H 02/17/19 13:48 NT-Pro-B Natriuret Pep Cancelled 02/17/19 13:48 Total Protein 7.0 g/dL (6.4-8.2) 02/17/19 13:48 Albumin 2.4 g/dL (3.4-5.0) L 02/17/19 13:48 Vitamin B12 229 pg/mL (193-986) 02/18/19 14:00 Folate 6.9 ng/mL (8.6-20.0) L 02/18/19 14:00 TSH 5.01 uIU/mL (0.36-3.74) H 02/17/19 13:48 TSH Cancelled 02/17/19 13:48 Free T4 1.04 ng/dL (0.76-1.46) 02/17/19 13:48 Urine Color Yellow (Yellow) 02/17/19 20:00 Urine Clarity Clear (Clear) 02/17/19 20:00 Urine pH 5.5 (5-8) 02/17/19 20:00 Ur Specific [place] 1.010 (1.005-1.025) 02/17/19 20:00 Urine Protein Negative mg/dL (Negative) 02/17/19 20:00 Urine Ketones Negative mg/dL (Negative) 02/17/19 20:00 Urine Blood Negative (Negative) 02/17/19 20:00 Urine Nitrite Negative (Negative) 02/17/19 20:00 Urine Bilirubin Negative (Negative) 02/17/19 20:00 Urine Urobilinogen 0.2 EU/dL (Up TO 0.2) 02/17/19 20:00 Ur Leukocyte Esterase Negative (Negative) 02/17/19 20:00 Urine Glucose Negative mg/dL (Negative) 02/17/19 20:00
[2019-02-21 11:50] LABS: Magnesium 2.2 mg/dL (1.8-2.4); PHOSPHORUS 5.9 mg/dL (2.6-4.7)
[2019-02-21] MEDS: Insulin Aspart 300 UNITS/3 ML PEN SC (12:10)
[2019-02-21] MEDS: Apixaban 5 MG TAB PO ×2 (13:14→19:33)
--- NOTE | 2019-02-21 13:47 | PDOC.CMPRO ---
- If Service Date Differs Date of service: 02/21/19 Time of Service: 13:47 Care Management Progress Note S/O: Homar was lying in bed with his eyes closed when CM entered the room. He conversed with CM minimally as he stated he was tired. He reported that his sister visited him last night, which he was happy about. CM discussed the importance of Homar working with PT, as he has not moved from his bed since admission. The nurse brought in a large recliner for him to transition to with PT when they worked with him, which is planned for later in the day. He was agreeable to trying to work with PT. A: Homar is a 53 year old male admitted to the ICU for Anasarca, CHF & PAOLA on 02/17/2019. P: Homar remains ICU level of care, he continues to receive IV diuretics and monitoring of fluid balance. Per provider, the goal is for Homar to lose 20lbs of fluid before discharge. CM anticipates Homar will return to [facility] once medically cleared via their w/c van. CM to continue to provide support, discharge planning and disposition.
--- NOTE | 2019-02-21 16:01 | DI.CT_ITS ---
SYMPTOMS/DIAGNOSIS: HEPATITIS C, HEPATOMEGALY, ANASARCA, ? CIRRHOSIS ABDOMINAL CT: CT examination of the abdomen was performed with a bolus infusion of 75 cc of Omnipaque 350. Images obtained through the lung bases show moderate bilateral pleural effusions with dependent atelectasis. Cardiac size grossly within normal limits. The patient reportedly has known cirrhosis and anasarca. There is marked diffuse soft tissue edema. Hepatic contour is nodular. No focal hepatic lesion identified. Spleen is enlarged. Pancreas unremarkable in appearance. Upper abdominal tortuous collateral veins noted. Adrenals and kidneys grossly unremarkable. Abdominal aorta of normal diameter. No gross adenopathy seen. No evidence of bowel obstruction. CONCLUSION: Bilateral pleural effusions, anasarca, but little if any abdominal ascites. Upper abdominal tortuous collateral veins noted.
[2019-02-21] MEDS: Omnipaque 350 MG/ML 100 ML BTL IV (16:06)
[2019-02-21] MEDS: Acetaminophen 325 MG TAB 650 MG PO ×2 (16:16→21:33)
--- NOTE | 2019-02-21 17:00 | PT.INTREAT ---
Date of service: 02/21/19 Time of Service: 11:11 PT Notes Inpatient Physical Therapy Treatment Note [facility] Date: 02/21/2019 PRECAUTIONS: Fall. Standard. Skin breakdown, Activity as tolerated. SUBJECTIVE: Patient continues to report fatigue. He reports of having an episode of nosebleed that the nurse said lasted about an hour this morning. During PT treatment nosebleed occured x 2 which increased with attempts at sitting at EOB. OBJECTIVE: Patient continues to be in telemetry. Carreno catheter still in place. Oxygen supp via NC. PAIN: 3-4/10 on R knee with movement. Moderate pain reported on perineal area while sitting at EOB. BED MOBILITY/TRANSFERS Rolling L/R: maximal assist of 2 Supine-sit: maximal assist of 2 Sit-supine: maximal assist of 2 Sit-stand: Unable to perform due to increased epistaxis with effort Stand-sit: Unable to perform due to increased epistaxis with effort Bed-Chair: Unable to perform due to increased epistaxis with effort Chair-bed: Unable to perform due to increased epistaxis with effort GAIT Unable to perform. Deferred due to significant safety issue and increased epistaxis. ASSESSMENT: Patient demonstrates significantly reduced activity tolerance and limitation in functional performance due to reports of fatigue, discomfort on perineal area, and increased generalized edema. Will continue to attempt at mobilizing as tolerated. PLAN: Continue with PT POC as initially established TREATMENT CODE/TIME: 9753 0 x 48 minutes beginning at 11:11 AM.
--- NOTE | 2019-02-21 19:14 | NUR.NOTE ---
Nursing Note: 0830--Patient had a left nare nose bleed that stopped bleeding at approximately 0945 after pinching patient's nose intermittently and keeping HOB at about [address] Narayan notified. 1125--Patient had another left nare nose bleed with physical therapy attempted to sit patient up to side of bed. Again pinched patient's nose and after 5 minutes put patient back in bed in supine position with hob at 25 degrees. Left nare stopped bleeding at approximately 1220. Dr. Narayan notified.
[2019-02-21] MEDS: Zolpidem 5 MG TAB PO ×2 (19:33→21:33)
[2019-02-21] MEDS: Atorvastatin 40 MG TAB PO (19:33)
[2019-02-21] MEDS: Lidocaine 4% Cream 5 GM TUBE TP (21:28)
[2019-02-22] VITALS (40 sets, daily range): BP systolic 77–125; BP diastolic 36–81; PULSE 55–70; RESP 11–21; TEMP 36.8–37.4; O2SAT 93–100
[2019-02-22] MEDS: Levothyroxine 100 MCG TAB 200 MCG PO (06:32)
[2019-02-22] MEDS: Levothyroxine 25 MCG TAB PO (06:33)
[2019-02-22 07:13] LABS: HGB 9.4 g/dL (13.5-17.5); Mean Corp. HGB Concentration 29.4 g/dL (32.0-36.0); Mean Corpuscular Hemoglobin 30.1 pg (27.0-33.0); Mean Corpuscular Volume 102.6 fL (80-95); Mean Platelet Volume 12.4 fL (8.0-11.0); Platelet Count 191 x1000/uL (130-400); RBC 3.12 m/cumm (4.50-6.00); RBC Distribution Width 14.7 % (11.8-14.1); White Blood Cell Count 5.97 k/cumm (4.4-10.8)
[2019-02-22 07:54] LABS: Anion Gap 5.9 mmol/L (3-11); CO2 37.1 mmol/L (21.0-32.0); CREATININE 1.83 mg/dL (0.70-1.30); Calcium 7.9 mg/dL (8.5-10.1); Chloride 97 mmol/L (98-107); Estimated GFR 39.07 (mL/min/1.73m2); Glucose 109 mg/dL (70-100); Magnesium 2.1 mg/dL (1.8-2.4); PHOSPHORUS 5.7 mg/dL (2.6-4.7); Sodium 140 mmol/L (136-145)
[2019-02-22 07:57] LABS: BUN 143 mg/dL (7-18)
[2019-02-22] MEDS: Apixaban 5 MG TAB PO ×2 (08:32→19:51)
[2019-02-22] MEDS: Citalopram 20 MG TAB PO (08:32)
[2019-02-22 10:46] LABS: Albumin 2.4 g/dL (3.4-5.0)
[2019-02-22] MEDS: Acetaminophen 325 MG TAB 650 MG PO ×3 (11:05→19:51)
--- NOTE | 2019-02-22 12:35 | W.PM.PROGNOT ---
Date of Service Date of service: 02/22/19 Time of Service: 12:39 Assessment and Plan Assessment and plan (1) Anasarca: Status: Acute Assessment and plan: Etiology is somewhat unclear at this point, but differential is as below: - Urinalysis negative for protein - unlikely to be secondary to nephrotic syndrome. - Evidence for Right sided CHF and potential Cor Pulmonale with PHTN and RV dysfunction. LV is intact. Unsure if current ECHO result fully explains current anasarca. - Known liver disease in setting of untreated HCV and prior EtOH abuse - appearance of nodular liver and tortuous abdominal veins. However, synthetic function appears intact, and a definite lack of ascites by imaging. - Potential for thrombosis (i.e. Venous Thrombosis/Hepatic Venous Obstruction), but patient with evidence of diffuse edema and anasarca, not just limited to the abdomen or Lower Extremities. Also on chronic anticoagulation. - No evidence of sepsis/infection, allergic reaction, or inflammation to explain symptoms. Patient is also Hypothyroid but on replacement therapy, with a minimally elevated TSH and normal FT4. - Review of medications with evidence of chronic Pregabalin use - highly doubt as cause for this level of generalized volume overload/anasarca, but Lyrica will be held. Discussed case in detail with Nephrology and [place] at [facility] who agrees with above assessment, with Recommendations for the following: - Continue gentle attempts at diuresis with careful monitoring of renal function. Will attempt administration of albumin to assess for improvement in blood pressure while attempting to diurese, as per nephro recs. - Check FeNA and Fractional Excretion of Urea - Patient with evidence of Elevated BUN and creatinine, and hypochloremia all worsening - if low FeNA and Fe Urea will confirm a prerenal state, with potential for Hepatorenal or Cardiorenal syndrome and current attempts at diuresis. Will also check a spot Protein/Creatinine ratio to confirm lack of proteinuria. Pending the above, patient may actually benefit from transfer to tertiary center for more invasive work-up, including potential Right Heart Cath, CVP monitoring, and in-depth specialty work-up. Will also check Pre-albumin. Also with potential for multi-factorial picture in the setting of Right sided CHF, some degree of liver dysfunction, hypoalbuminemia, and potential medication side-effect, but current anasarca state is fairly significant and difficult to explain with this reasoning. (2) Acute kidney injury superimposed on chronic kidney disease: Status: Acute Assessment and plan: In setting of increasing diuretic use - potential prerenal state and intravascular depletion. Plan as above. (3) Diabetic peripheral neuropathy: Status: Acute Assessment and plan: Hold Lyrica as above. (4) Type 2 diabetes mellitus without complication: Status: Acute Assessment and plan: HgA1C 5.9%. Continue sliding scale coverage. (5) Protein C deficiency: Status: Acute Assessment and plan: Currently on AC with Apixaban. Patient's weight may preclude the use of this medication - however, a significant amount of Mr. De Jesus's weight may be due to fluid overload state. For now continue Apixaban, with plans to discuss with Hematology soon. (6) Chronic viral hepatitis C: Status: Acute Assessment and plan: Noted, in setting of prior IVDA, and with previous EtOH abuse and current evidence of a cirrhotic appearing liver by imaging. (7) Hypothyroidism: Status: Chronic Assessment and plan: TSH minimally elevated with normal FT4. Continue replacement therapy. (8) DVT prophylaxis: Status: Acute Assessment and plan: Continue anticoagulation. Will initiate PPI therapy for GI Prophylaxis as well. (9) Advance directive on file: Status: Acute Assessment and plan: DNR/DNI. Subjective Subjective Interval history since last seen: 53 year old man with recent admissions for treatment of fluid overload and anasarca, admitted 02/17 from [facility] Emergency Department with a diagnosis of Anasarca and PAOLA. Mr. De Jesus has a past Medical History significant for Hypothyroidism, untreated HCV, DM with diabetic neuropathy, and CKD. Also with a noted Protein C Deficiency, on chronic anticoagulation with Apixaban. The patient has a diagnosis of an unspecified cardiomyopathy and Diastolic CHF - however, his current ECHO is indicative of RV Dysfunction and PHTN, but without evidence of LV Systolic or diastolic failure. Review of records also indicates prior EtOH abuse and IVDA, now in remission. Mr. De Jesus was recently admitted at an outside institution on 3 prior occasions, with each hospitalization lasting approximately 2 weeks according to the admission H&P, with his last admission at [facility] between January 24 through February 10 at which time he was treated for volume overload and Anasarca. Work-up at that time included LE Ultrasound equivocal for a popliteal vein thrombosis on the left, low probability VQ Scan (01/28), and a new diagnosis of Protein C Deficiency for which he was initiated on anticoagulation. He apparently had a lack of response to a Furosemide drip, with Metolazone being added on. The patient was discharged to [facility], but after only 3 days presented back to the ED with reported worsening dyspnea and orthopnea despite an increase in his oral lasix (doubled in dose) and addition of Metolazone. Initial Work-up in the ED was significant for worsening creatinine (1.6 to 2) as well as BUN (70's to 120's), grossly elevated BNP, and CXR with bilateral pleural effusions. He was also found to be grossly volume overloaded with evidence of Anasarca by exam. Following admission he has diuresed approximately 1L a day but without significant improvement in his overall symptoms. Additional work-up has included an abdominal ultrasound that was limited but showed probable hepatosplenomegally, ECHO with a normal LVEF, moderately dilated LV and severely dilated LA/RA, with PHTN (PAP 45), moderately reduced RV systolic function, and moderate TR. His UE Ultrasound was negative for DVT. CT of his abdomen showed b/l pleural effusions, anasarca, but no abdominal ascites - noted however were Tortuous collateral upper abdominal veins and a nodular liver. This morning Mr. De Jesus reports essentially unchanged symptoms. No overnight events reported. Remains afebrile. Exam Narrative Exam Narrative: General: Patient appears chronically ill, AAOX3, NAD Neck: Supple CV: Regular, nontachycardic, S1S2, 3/6 LLSB murmur appreciated Pulmonary: Decreased breath sounds with crackles bibasilar, on limited anterior and lateral exam. Abdomen: + Bowel Sounds, soft, nontender, nondistended Vascular: 3-4+ b/l UE and LE edema Psych: Normal mood and affect. Objective Objective Clinical Data: Abnormal lab results 02/22/19 02/22/19 Range/Units 06:25 06:25 RBC 3.12 L (4.50-6.00) m/cumm Hgb 9.4 L (13.5-17.5) g/dL Hct 32.0 L (40.0-50.0) % MCV 102.6 H (80-95) fL MCHC 29.4 L (32.0-36.0) g/dL RDW 14.7 H (11.8-14.1) % MPV 12.4 H (8.0-11.0) fL Chloride 97 L (98-107) mmol/L Carbon Dioxide 37.1 H (21.0-32.0) mmol/L BUN 143 H* (7-18) mg/dL Creatinine 1.83 H (0.70-1.30) mg/dL Glucose 109 H (70-100) mg/dL Calcium 7.9 L (8.5-10.1) mg/dL Phosphorus 5.7 H (2.6-4.7) mg/dL Albumin 2.4 L (3.4-5.0) g/dL Vital Signs Temperature 36.8 C 02/22/19 08:30 Temperature Source Temporal Artery Scan 02/22/19 08:30 Pulse 56 L 02/22/19 08:00 Pulse 58 L 02/22/19 10:00 Respiratory Rate 14 02/22/19 10:00 Respiratory Effort Non-Labored 02/22/19 08:30 Respiratory Depth Normal 02/22/19 08:30 Respiratory Pattern Normal 02/22/19 08:30 Blood Pressure 85/39 L 02/22/19 08:00 Blood Pressure Mean 49 02/22/19 08:00 Blood Pressure Position Supine 02/22/19 08:30 Pulse Oximetry 98 02/22/19 08:30 Oxygen Delivery Method Nasal Cannula 02/22/19 08:30 Oxygen Flow Rate 1 02/22/19 08:30 Pain Level 8 02/22/19 11:05 Comment 02/21/19 09:30 Intake & Output 02/21/19 02/22/19 02/22/19 23:59 11:59 23:59 Intake Total 1379.733 / 2002.000 503.4 / 503.4 Output Total 1575 / 3555 1999 Balance -195.267 / -1553.000 -1496.6 / -1496.6 Weight 147.1 kg Intake: IV 37.733 / 100.000 23.4 / 23.4 Oral 1342 / 1902 480 / 480 Output: Urine 1575 / 3555 1999 Other: Urine Color Yellow Pale Yellow Urine Appearance Clear Clear Comment kincaid in place. kincaid in place. Stool Size Moderate Stool Characteristics Soft Formed Laboratory Results WBC 5.97 k/cumm (4.4-10.8) 02/22/19 06:25 RBC 3.12 m/cumm (4.50-6.00) L 02/22/19 06:25 Hgb 9.4 g/dL (13.5-17.5) L 02/22/19 06:25 Hct 32.0 % (40.0-50.0) L 02/22/19 06:25 MCV 102.6 fL (80-95) H 02/22/19 06:25 MCH 30.1 pg (27.0-33.0) 02/22/19 06:25 MCHC 29.4 g/dL (32.0-36.0) L 02/22/19 06:25 RDW 14.7 % (11.8-14.1) H 02/22/19 06:25 Plt Count 191 x1000/uL (130-400) 02/22/19 06:25 MPV 12.4 fL (8.0-11.0) H 02/22/19 06:25 Immature Gran % 0.2 02/21/19 08:50 Neutrophils % 61.0 02/21/19 08:50 Lymphocytes % 24.0 02/21/19 08:50 Monocytes % 12.9 02/21/19 08:50 Eosinophils % 1.9 02/21/19 08:50 Basophils % 0.0 02/21/19 08:50 Absolute Neutrophils 3.93 k/cumm (1.2-6.7) 02/21/19 08:50 Absolute Lymphocytes 1.54 k/cumm (1.2-3.4) 02/21/19 08:50 Absolute Monocytes 0.83 k/cumm (0.11-0.7) H 02/21/19 08:50 Absolute Eosinophils 0.12 k/cumm (0.0-0.7) 02/21/19 08:50 Absolute Basophils 0.00 k/cumm (0.0-0.2) 02/21/19 08:50 Differential Comment Rbc morph reviewed 02/21/19 08:50 RBC Morphology See below 02/21/19 08:50 Hypochromasia 1+ 02/21/19 08:50 Macrocytosis 2+ 02/21/19 08:50 PT 11.4 sec (9.3-11.0) H 02/17/19 13:40 INR 1.1 (0.9-1.1) 02/17/19 13:40 APTT 43.0 sec (21.0-31.4) H 02/20/19 14:00 Sodium 140 mmol/L (136-145) 02/22/19 06:25 Potassium 4.0 mmol/L (3.5-5.1) 02/22/19 06:25 Chloride 97 mmol/L (98-107) L 02/22/19 06:25 Carbon Dioxide 37.1 mmol/L (21.0-32.0) H 02/22/19 06:25 Anion Gap 5.9 mmol/L (3-11) 02/22/19 06:25 BUN 143 mg/dL (7-18) H* 02/22/19 06:25 Creatinine 1.83 mg/dL (0.70-1.30) H 02/22/19 06:25 Estimated GFR/1.73 m2 39.07 (mL/min/1.73m2) 02/22/19 06:25 Glucose 109 mg/dL (70-100) H 02/22/19 06:25 Hemoglobin A1c 5.9 % (4.5-6.2) 02/18/19 06:15 Calcium 7.9 mg/dL (8.5-10.1) L 02/22/19 06:25 Phosphorus 5.7 mg/dL (2.6-4.7) H 02/22/19 06:25 Magnesium 2.1 mg/dL (1.8-2.4) 02/22/19 06:25 Total Bilirubin 0.4 mg/dL (0.2-1.0) 02/17/19 13:48 AST 9 U/L (15-37) L 02/17/19 13:48 ALT < 6 U/L (16-63) L 02/17/19 13:48 Alkaline Phosphatase 51 U/L (46-116) 02/17/19 13:48 Troponin I < 0.05 ng/mL (0.00-0.06) 02/17/19 13:48 NT-Pro-B Natriuret Pep 56339 pg/mL (-299) H 02/17/19 13:48 NT-Pro-B Natriuret Pep Cancelled 02/17/19 13:48 Total Protein 7.0 g/dL (6.4-8.2) 02/17/19 13:48 Albumin 2.4 g/dL (3.4-5.0) L 02/22/19 06:25 Vitamin B12 229 pg/mL (193-986) 02/18/19 14:00 Folate 6.9 ng/mL (8.6-20.0) L 02/18/19 14:00 TSH 5.01 uIU/mL (0.36-3.74) H 02/17/19 13:48 TSH Cancelled 02/17/19 13:48 Free T4 1.04 ng/dL (0.76-1.46) 02/17/19 13:48 Urine Color Yellow (Yellow) 02/17/19 20:00 Urine Clarity Clear (Clear) 02/17/19 20:00 Urine pH 5.5 (5-8) 02/17/19 20:00 Ur Specific Burton 1.010 (1.005-1.025) 02/17/19 20:00 Urine Protein Negative mg/dL (Negative) 02/17/19 20:00 Urine Ketones Negative mg/dL (Negative) 02/17/19 20:00 Urine Blood Negative (Negative) 02/17/19 20:00 Urine Nitrite Negative (Negative) 02/17/19 20:00 Urine Bilirubin Negative (Negative) 02/17/19 20:00 Urine Urobilinogen 0.2 EU/dL (Up TO 0.2) 02/17/19 20:00 Ur Leukocyte Esterase Negative (Negative) 02/17/19 20:00 Urine Glucose Negative mg/dL (Negative) 02/17/19 20:00
--- NOTE | 2019-02-22 13:52 | CMPROGNOTE_ITS ---
- If Service Date Differs Date of service: 02/22/19 Time of Service: 13:52 Care Management Progress Note S/O: Homar was sitting up in a chair eating his lunch when CM entered the room. His brother, Luis was in the room talking with him and remained in the room, engaging in conversation with CM and Homar. Homar reported pain in his feet and neck, and general discomfort, which he had already reported to the nurse. He also reported that he had participated with PT today. CM discussed the importa nce of him working with PT during his time at [facility], as this will help his overall recovery. CM discussed his plan to return to [facility] & when medically ready, and Homar stated that he is agreeable to this plan. A: Homar is a 53 year old male admitted to the ICU for Anasarca, CHF & PAOLA on 02/17/2019. P: Homar remains ICU level of care, he continues to receive IV diuretics and monitoring of fluid balance. Per provider, the goal is for Homar to lose 20lbs of fluid before discharge. CM anticipates Homar will return to [facility] & once medically cleared via their w/c van. CM to continue to provide support, discharge planning and disposition.
[2019-02-22] MEDS: ALBUMIN HUMAN 25 GM/100 ML BTL IV (15:52)
[2019-02-22 16:55] LABS: Creatinine,Urine 16.41 mg/dL; Sodium, Urine 87 mmol/L
--- NOTE | 2019-02-22 17:00 | PT.INTREAT ---
Date of service: 02/22/19 Time of Service: 11:10 PT Notes Inpatient Physical Therapy Treatment Note [facility] Date: 02/22/2019 PRECAUTIONS: Fall. Standard. Skin breakdown, Activity as tolerated. SUBJECTIVE: Patient continues to report fatigue. No episode of nosebleed since yesterday afternoon. He does report pain in neck at rest and with movement. He is agreeable to attempting bed <>wheelchair transfer today with encouragement from PT and nurse. OBJECTIVE: Patient obese. Patient continues to be in telemetry. Carreno catheter still in place. Oxygen supp via NC. PAIN: 3-4/10 on R knee with movement. Moderate pain reported on posterior cervical area at rest and with movement. BED MOBILITY/TRANSFERS Rolling L/R: maximal assist of 2 Supine-sit: maximal assist of 2 Sit-supine: maximal assist of 2 Sit-stand: maximal assist of 2 Stand-sit: maximal assist of 2 Bed-chair: maximal assist of 2 Chair-bed: mechanical lift facilitated by two ICU nurses with assistance from PT and student PT. Nurses are aware of accidental skin tear on R anterior bowden area and L medial thigh from use of mechanical lift GAIT Unable to perform. Deferred due to significant safety issue and increased epistaxis. ASSESSMENT: Patient continues to demonstrate significantly reduced activity tolerance and limitation in functional performance due to reports of fatigue, discomfort on perineal area, and increased generalized edema. PLAN: Continue with PT POC as initially established. TREATMENT CODE/TIME: 10168 x 48 minutes beginning at 11:10 AM.
[2019-02-22] MEDS: Normal Saline Flush 10 ML SYR IVP (17:51)
[2019-02-22] MEDS: ALBUMIN HUMAN 25 GM/100 ML BAG IV (18:40)
[2019-02-22] MEDS: Atorvastatin 40 MG TAB PO (19:51)
[2019-02-22] MEDS: Zolpidem 5 MG TAB PO ×2 (19:51→21:13)
[2019-02-22 21:37] LABS: Urea Nitrogen Random Urine 314 mg/dl
[2019-02-23] VITALS (37 sets, daily range): BP systolic 73–114; BP diastolic 26–59; PULSE 58–68; RESP 12–19; TEMP 37.1–37.7; O2SAT 86–99
[2019-02-23] MEDS: Acetaminophen 325 MG TAB 650 MG PO (00:13)
[2019-02-23] MEDS: Levothyroxine 100 MCG TAB 200 MCG PO (06:36)
[2019-02-23] MEDS: Levothyroxine 25 MCG TAB PO (06:36)
[2019-02-23 06:54] LABS: Absolute Eosinophil Count 0.16 k/cumm (0.0-0.7); Absolute Lymphocyte Count 1.62 k/cumm (1.2-3.4); Absolute Monocyte Count 0.66 k/cumm (0.11-0.7); Absolute Neutrophil Count 3.93 k/cumm (1.2-6.7); Eosinophils % 2.5; HCT 31.1 % (40.0-50.0); HGB 9.1 g/dL (13.5-17.5); Lymphocytes % 25.4; Mean Corp. HGB Concentration 29.3 g/dL (32.0-36.0); Mean Corpuscular Hemoglobin 29.9 pg (27.0-33.0); Mean Corpuscular Volume 102.3 fL (80-95); Mean Platelet Volume 12.3 fL (8.0-11.0); Monocytes % 10.4; Neutrophils % 61.7; Platelet Count 197 x1000/uL (130-400); RBC 3.04 m/cumm (4.50-6.00); RBC Distribution Width 14.7 % (11.8-14.1); White Blood Cell Count 6.37 k/cumm (4.4-10.8)
[2019-02-23 07:07] LABS: Diff Comment RBC Morph Reviewed; Hypochromasia 1+; Macrocytosis 2+; Polychromasia Present
[2019-02-23 07:33] LABS: Anion Gap 4.4 mmol/L (3-11); CO2 37.6 mmol/L (21.0-32.0); CREATININE 1.81 mg/dL (0.70-1.30); Chloride 98 mmol/L (98-107); Estimated GFR 39.57 (mL/min/1.73m2); Glucose 103 mg/dL (70-100); Sodium 140 mmol/L (136-145)
[2019-02-23 07:34] LABS: BUN 148 mg/dL (7-18)
[2019-02-23 07:51] LABS: PROTEIN 70.9 mg/dL
[2019-02-23 07:56] LABS: COMMENT (LAB VIEW ONLY) 89.21 mg/dL; Prot/Crea Ur Ratio 0.79
[2019-02-23] MEDS: Pantoprazole 40 MG VIAL IVP (08:22)
[2019-02-23] MEDS: Normal Saline Flush 10 ML SYR IVP (08:22)
[2019-02-23] MEDS: Citalopram 20 MG TAB PO (08:24)
[2019-02-23] MEDS: Folic Acid 1 MG TAB PO (08:24)
[2019-02-23] MEDS: Apixaban 5 MG TAB PO (08:24)
--- NOTE | 2019-02-23 14:39 | PT.INTREAT ---
Date of service: 02/23/19 Time of Service: 14:30 PT Notes 02/23/19 PT treatment held today due to declining condition, per conversation with nursing staff. Lisa Welch, APPLICATION INTEGRATION ENGINEER
--- NOTE | 2019-02-23 15:50 | CMPROGNOTE_ITS ---
Care Management Progress Note S/O: Homar was with PT and I did not interrupt the session. A: Homar is a 53 year old male admitted to the ICU for Anasarca, CHF & PAOLA on 02/17/2019. P: Homar has been readmitted several times and the exact cause of the anasarca has not been identified. Remains ICU level of care, he continues to receive IV diuretics and monitoring of fluid balance. Homar will now be transferred to [facility] hopefully within the next 24 hours to receive a complete work up and then develop further plans from that point.
--- NOTE | 2019-02-23 16:15 | NUR.NOTE ---
Elaine CAMPBELL notified that PT and PT's sister Chelsea are aware he is expected to transfer tonight as [facility] now confirms they have a bed for him. Nursing Note:
--- NOTE | 2019-02-23 16:28 | PGE_ITS ---
Date of Service Date of service: 02/23/19 Time of Service: 16:28 Assessment and Plan Assessment and plan (1) Anasarca: Status: Acute Assessment and plan: Etiology is somewhat unclear at this point, but differential is as below: - Urinalysis negative for protein - unlikely to be secondary to nephrotic syndrome. A spot protein/creatinine was also checked and also not in the nephrotic range (794 mg/g). - Evidence for Right sided CHF and potential Cor Pulmonale with PHTN (PAP 45) and moderate RV dysfunction. LV is intact. However, unsure if current ECHO result fully explains this degree of anasarca. - Hx liver disease in setting of untreated HCV and prior EtOH abuse - nodular liver and tortuous abdominal veins by CT. However, synthetic function appears intact (normal INR), no ascites by imaging, and nl platelet count. - Potential for thrombosis (i.e. Venous Thrombosis/Hepatic Venous Obstruction), but patient with evidence of diffuse edema and anasarca, not just limited to the abdomen or Lower Extremities. Also on chronic anticoagulation. - No evidence of sepsis/infection, allergic reaction, or inflammation to explain symptoms. Patient is also Hypothyroid but on replacement therapy, with a minimally elevated TSH and normal FT4. - Review of medications with evidence of chronic Pregabalin use - highly doubt as cause for this level of generalized volume overload/anasarca, but Lyrica will be held. Discussed case in detail with Nephrology and GI at [facility] [place] who agrees with above assessment, with Recommendations for the following: - Continue gentle attempts at diuresis with careful monitoring of renal function. Will attempt administration of albumin to assess for improvement in blood pressure while attempting to diurese, as per nephro recs. - Check FeNA and Fractional Excretion of Urea - Patient with evidence of Elevated BUN and creatinine, and hypochloremia all worsening - if low FeNA and Fe Urea will confirm a prerenal state, with potential for Hepatorenal or Cardiorenal syndrome and current attempts at diuresis. Will also check a spot Protein/Creatinine ratio to confirm lack of proteinuria. Pending the above, patient may actually benefit from transfer to tertiary center for more invasive work-up, including potential Right Heart Cath, CVP monitoring, and in-depth specialty work-up. Will also check Pre-albumin. Also with potential for multi-fa ctorial picture in the setting of Right sided CHF, some degree of liver dysfunction, hypoalbuminemia, and potential medication side-effect, but current anasarca state is fairly significant and difficult to explain with this reasoning. (2) Acute kidney injury superimposed on chronic kidney disease: Status: Acute Assessment and plan: In setting of increasing diuretic use - potential prerenal state and intravascular depletion. Plan as above. (3) Diabetic peripheral neuropathy: Status: Acute Assessment and plan: Hold Lyrica as above. (4) Type 2 diabetes mellitus without complication: Status: Acute Assessment and plan: HgA1C 5.9%. Continue sliding scale coverage. (5) Protein C deficiency: Status: Acute Assessment and plan: Currently on AC with Apixaban. Patient's weight may preclude the use of this medication - however, a significant amount of Mr. De Jesus's weight may be due to fluid overload state. For now continue Apixaban, with plans to discuss with Hematology soon. (6) Chronic viral hepatitis C: Status: Acute Assessment and plan: Noted, in setting of prior IVDA, and with previous EtOH abuse and current evidence of a cirrhotic appearing liver by imaging. (7) Hypothyroidism: Status: Chronic Assessment and plan: TSH minimally elevated with normal FT4. Continue replacement therapy. (8) DVT prophylaxis: Status: Acute Assessment and plan: Continue anticoagulation. Will initiate PPI therapy for GI Prophylaxis as well. (9) Advance directive on file: Status: Acute Assessment and plan: DNR/DNI. Subjective Subjective Interval history since last seen: 53 year old man with 3 recent admissions for treatment of fluid overload and anasarca, admitted 02/17 from [facility] Emergency Department with a diagnosis of Anasarca and PAOLA. Mr. De Jesus has a past Medical History significant for Hypothyroidism, untreated HCV, DM with diabetic neuropathy, and CKD. Also with a noted Protein C Deficiency recently diagnosed, on chronic anticoagulation with Apixaban. The patient has a diagnosis of an unspecified cardiomyopathy and Diastolic CHF - however, his current ECHO is indicative of moderate RV Dysfunction and PHTN, but without evidence of LV Systolic or diastolic failure. Review of records also indicates prior EtOH abuse and IVDA, now in remission. Mr. De Jesus was recently admitted at an outside institution on 3 prior occasions starting in December of this year, with each hospitalization lasting approximately 2 weeks according to verbal history, with his last admission at [facility] between January 24 through February 10 at which time he was treated for volume overload and Anasarca. Work-up at that time included LE Ultrasound equivocal for a popliteal vein thrombosis on the left, low probability VQ Scan (01/28), and a new diagnosis of Protein C Deficiency for which he was initiated on anticoagulation. He apparently had a lack of response to a Furosemide drip, with Metolazone being added on. The patient was discharged to [facility], but after only 3 days presented back to the ED with reported worsening dyspnea and orthopnea despite an increase in his oral lasix (doubled in dose) and addition of Metolazone for 2 days prior to his admission. Initial Work-up in the ED was significant for worsening creatinine (1.6 --> 2) as well as BUN (70's --> 120's), grossly elevated BNP, and CXR with bilateral pleural effusions. He was also found to be grossly volume overloaded with evidence of Anasarca by exam. Following admission he had diuresed approximately 1L a day but without significant improvement in his overall symptoms, and actually diuresed 4.5 L yesterday following administration of albumin with his bumex drip. His creatinine is stable and slightly improved at 1.8, with worsening BUN that remains in the 140's. Additional work-up has included an abdominal ultrasound that was limited but showed probable hepatosplenomegally, ECHO with a normal LVEF, moderately dilated LV and severely dilated LA/RA, with PHTN (PAP 45), moderately reduced RV systolic function, and moderate TR. His UE Ultrasound was negative for DVT. CT of his abdomen showed b/l pleural effusions, anasarca, but NO abdominal ascites - noted however were Tortuous collateral upper abdominal veins and a nodular liver. This morning Mr. De Jesus reports essentially unchanged symptoms again, and has appeared somnolent and found to be sleeping a great deal of his day. No overnight events reported. Remains afebrile. Exam Narrative Exam Narrative: General: Patient appears debilitated and chronically ill, asleep but arousable, appropriate with answers and oriented X3, NAD Neck: Supple CV: Regular, nontachycardic, S1S2, 3/6 LLSB murmur appreciated Pulmonary: Decreased breath sounds with crackles bibasilar on limited anterior and lateral exam. Abdomen: + Bowel Sounds, soft, nontender, nondistended Vascular: 3-4+ b/l UE and LE edema that appears worsened Psych: Normal mood and affect. Objective Objective Clinical Data: Abnormal lab results 02/23/19 02/23/19 Range/Units 06:14 06:14 RBC 3.04 L (4.50-6.00) m/cumm Hgb 9.1 L (13.5-17.5) g/dL Hct 31.1 L (40.0-50.0) % MCV 102.3 H (80-95) fL MCHC 29.3 L (32.0-36.0) g/dL RDW 14.7 H (11.8-14.1) % MPV 12.3 H (8.0-11.0) fL Carbon Dioxide 37.6 H (21.0-32.0) mmol/L BUN 148 H* (7-18) mg/dL Creatinine 1.81 H (0.70-1.30) mg/dL Glucose 103 H (70-100) mg/dL Calcium 8.0 L (8.5-10.1) mg/dL Vital Signs Temperature 37.1 C 02/23/19 11:33 Temperature Source Temporal Artery Scan 02/23/19 11:33 Pulse 62 02/23/19 14:01 Pulse 62 02/23/19 14:01 Respiratory Rate 17 02/23/19 14:01 Respiratory Effort Non-Labored 02/23/19 11:33 Respiratory Depth Normal 02/23/19 11:33 Respiratory Pattern Normal 02/23/19 11:33 Blood Pressure 78/36 L 02/23/19 14:01 Blood Pressure Mean 46 02/23/19 14:01 Blood Pressure Position Supine 02/23/19 11:33 Pulse Oximetry 95 02/23/19 07:01 Oxygen Delivery Method Nasal Cannula 02/23/19 11:33 Oxygen Flow Rate 1 02/23/19 11:33 Pain Level 0 02/23/19 09:13 Comment 02/23/19 10:28 Intake & Output 02/22/19 02/23/19 02/23/19 23:59 11:59 23:59 Intake Total 864.733 / 1368.133 908 / 1028 120 / 1028 Output Total 3875 / 5875 280 / 1105 825 / 1105 Balance -3010.267 / -4506.867 628 / -77 -705 / -77 Weight 144.6 kg Intake: IV 264.733 / 288.133 48 / 48 Oral 600 / 1080 860 / 980 120 / 980 Output: Urine 3875 / 5875 280 / 1105 825 / 1105 Other: Urine Color Yellow Yellow Yellow Urine Appearance Clear Clear Clear Comment Passing clear, light yellow urine QS. Pt remains on a Bumex drip. Patient reports mild abd burning. Stool Occult Blood Negative Stool Size Large Stool Characteristics Soft Laboratory Results WBC 6.37 k/cumm (4.4-10.8) 02/23/19 06:14 RBC 3.04 m/cumm (4.50-6.00) L 02/23/19 06:14 Hgb 9.1 g/dL (13.5-17.5) L 02/23/19 06:14 Hct 31.1 % (40.0-50.0) L 02/23/19 06:14 MCV 102.3 fL (80-95) H 02/23/19 06:14 MCH 29.9 pg (27.0-33.0) 02/23/19 06:14 MCHC 29.3 g/dL (32.0-36.0) L 02/23/19 06:14 RDW 14.7 % (11.8-14.1) H 02/23/19 06:14 Plt Count 197 x1000/uL (130-400) 02/23/19 06:14 MPV 12.3 fL (8.0-11.0) H 02/23/19 06:14 Immature Gran % 0.0 02/23/19 06:14 Neutrophils % 61.7 02/23/19 06:14 Lymphocytes % 25.4 02/23/19 06:14 Monocytes % 10.4 02/23/19 06:14 Eosinophils % 2.5 02/23/19 06:14 Basophils % 0.0 02/23/19 06:14 Absolute Neutrophils 3.93 k/cumm (1.2-6.7) 02/23/19 06:14 Absolute Lymphocytes 1.62 k/cumm (1.2-3.4) 02/23/19 06:14 Absolute Monocytes 0.66 k/cumm (0.11-0.7) 02/23/19 06:14 Absolute Eosinophils 0.16 k/cumm (0.0-0.7) 02/23/19 06:14 Absolute Basophils 0.00 k/cumm (0.0-0.2) 02/23/19 06:14 Differential Comment Rbc morph reviewed 02/23/19 06:14 RBC Morphology See below 02/23/19 06:14 Polychromasia Present 02/23/19 06:14 Hypochromasia 1+ 02/23/19 06:14 Macrocytosis 2+ 02/23/19 06:14 PT 11.4 sec (9.3-11.0) H 02/17/19 13:40 INR 1.1 (0.9-1.1) 02/17/19 13:40 APTT 43.0 sec (21.0-31.4) H 02/20/19 14:00 Sodium 140 mmol/L (136-145) 02/23/19 06:14 Potassium 4.0 mmol/L (3.5-5.1) 02/23/19 06:14 Chloride 98 mmol/L (98-107) 02/23/19 06:14 Carbon Dioxide 37.6 mmol/L (21.0-32.0) H 02/23/19 06:14 Anion Gap 4.4 mmol/L (3-11) 02/23/19 06:14 BUN 148 mg/dL (7-18) H* 02/23/19 06:14 Creatinine 1.81 mg/dL (0.70-1.30) H 02/23/19 06:14 Estimated GFR/1.73 m2 39.57 (mL/min/1.73m2) 02/23/19 06:14 Glucose 103 mg/dL (70-100) H 02/23/19 06:14 Hemoglobin A1c 5.9 % (4.5-6.2) 02/18/19 06:15 Calcium 8.0 mg/dL (8.5-10.1) L 02/23/19 06:14 Phosphorus 5.7 mg/dL (2.6-4.7) H 02/22/19 06:25 Magnesium 2.0 mg/dL (1.8-2.4) 02/23/19 06:14 Total Bilirubin 0.4 mg/dL (0.2-1.0) 02/17/19 13:48 AST 9 U/L (15-37) L 02/17/19 13:48 ALT < 6 U/L (16-63) L 02/17/19 13:48 Alkaline Phosphatase 51 U/L (46-116) 02/17/19 13:48 Troponin I < 0.05 ng/mL (0.00-0.06) 02/17/19 13:48 NT-Pro-B Natriuret Pep 74958 pg/mL (-299) H 02/17/19 13:48 NT-Pro-B Natriuret Pep Cancelled 02/17/19 13:48 Total Protein 7.0 g/dL (6.4-8.2) 02/17/19 13:48 Albumin 2.4 g/dL (3.4-5.0) L 02/22/19 06:25 Vitamin B12 229 pg/mL (193-986) 02/18/19 14:00 Folate 6.9 ng/mL (8.6-20.0) L 02/18/19 14:00 TSH 5.01 uIU/mL (0.36-3.74) H 02/17/19 13:48 TSH Cancelled 02/17/19 13:48 Free T4 1.04 ng/dL (0.76-1.46) 02/17/19 13:48 Urine Color Yellow (Yellow) 02/17/19 20:00 Urine Clarity Clear (Clear) 02/17/19 20:00 Urine pH 5.5 (5-8) 02/17/19 20:00 Ur Specific [place] 1.010 (1.005-1.025) 02/17/19 20:00 Urine Protein Negative mg/dL (Negative) 02/17/19 20:00 Urine Ketones Negative mg/dL (Negative) 02/17/19 20:00 Urine Blood Negative (Negative) 02/17/19 20:00 Urine Nitrite Negative (Negative) 02/17/19 20:00 Urine Bilirubin Negative (Negative) 02/17/19 20:00 Urine Urobilinogen 0.2 EU/dL (Up TO 0.2) 02/17/19 20:00 Ur Leukocyte Esterase Negative (Negative) 02/17/19 20:00 Ur Random Creatinine 89.21 mg/dL 02/23/19 07:20 U Random Total Protein 70.9 mg/dL 02/23/19 07:20 U [place] Prot/Creat Ratio 0.79 02/23/19 07:20 Ur Random Sodium 87 mmol/L 02/22/19 14:50 Urine Glucose Negative mg/dL (Negative) 02/17/19 20:00
--- NOTE | 2019-02-23 16:41 | DSE_ITS ---
Date of service: 02/23/19 Time of Service: 16:41 DS: Diagnosis Discharge Diagnosis (1) Anasarca: Status: Acute (2) Acute kidney injury superimposed on chronic kidney disease: Status: Acute (3) Diabetic peripheral neuropathy: Status: Acute (4) Type 2 diabetes mellitus without complication: Status: Acute (5) Protein C deficiency: Status: Acute (6) Chronic viral hepatitis C: Status: Acute (7) Hypothyroidism: Status: Chronic Discharge Plan Disposition Patient Disposition: [facility] ([facility]) Condition: Serious Discharge Details Chief Complaint: SOB Clinical Impression: Anasarca, CHF (congestive heart failure) Reason For Visit: ANASARCA, CHF, PAOLA Admit Date/Time: 02/17/19 16:31 Admit Provider: David Shaver Attending Provider: David Shaver Primary Care Provider: [place] [facility] Hospital Course: Chief Complaint: Dyspnea, worsening Anasarca HPI: 53 year old man with 3 recent admissions for treatment of fluid overload and anasarca, admitted from [facility] Emergency Department on 02/17 with a diagnosis of Anasarca and PAOLA. Mr. De Jesus has a past Medical History significant for Hypothyroidism, untreated HCV, DM with diabetic neuropathy, and CKD. Also with a noted Protein C Deficiency recently diagnosed, on chronic anticoagulation with Apixaban. The patient has a diagnosis of an unspecified cardiomyopathy and Diastolic CHF by records - however, his current ECHO is indicative of moderate RV Dysfunction and PHTN, but without evidence of LV Systolic or diastolic failure. Review of records also indicates prior EtOH abuse and IVDA, now in remission. Mr. De Jesus was recently admitted at an outside institution on 3 prior occasions starting in December of this year, with each hospitalization lasting approximately 2 weeks according to verbal history, with his last admission at [facility] between January 24 through February 10 at which time he was treated for volume overload and Anasarca. Work-up at that time included LE Ultrasound equivocal for a popliteal vein thrombosis on the left, low probability VQ Scan (01/28), and a new diagnosis of Protein C Deficiency for which he was initiated on anticoagulation. He apparently had a lack of response to a Furosemide drip, with Metolazone being added on. The patient was discharged to [facility], but after only 3 days presented back to the ED with reported worsening dyspnea and orthopnea despite an increase in his oral lasix (doubled in dose) and addition of Metolazone for 2 days prior to his admission. Initial Work-up in the ED was significant for worsening creatinine (1.6 --> 2) as well as BUN (70's --> 120's), grossly elevated BNP, and CXR with bilateral pleural effusions. He was also found to be grossly volume overloaded clinically with evidence of Anasarca by exam. Following admission he had diuresed approximately 1L a day but without significant improvement in his overall symptoms, and actually diuresed 4.5 L yesterday following administration of albumin with his bumex drip. His creatinine is stable and slightly improved at 1.8, with worsening BUN that remains in the 140's. Additional work-up has included an abdominal ultrasound that was limited but showed probable hepatosplenomegally, ECHO with a normal LVEF, moderately dilated LV and severely dilated LA/RA, with PHTN (PAP 45), moderately reduced RV systolic function, and moderate TR. His UE Ultrasound was negative for DVT. CT of his abdomen showed bilaterall pleural effusions, anasarca, but NO abdominal ascites - noted however were Tortuous collateral upper abdominal veins and a nodular liver. This morning Mr. De Jesus reports essentially unchanged symptoms again, and has appeared somnolent and found to be sleeping a great deal of the day. No overnight events reported. Remains afebrile. Hospital Course: (1) Anasarca: Etiology is somewhat unclear at this point, but differential is as below: - Urinalysis negative for protein - unlikely to be secondary to nephrotic syndrome. A spot protein/creatinine was also checked and not in the nephrotic range (794 mg/g). - Evidence for Right sided CHF and potential Cor Pulmonale with PHTN (PAP 45) and moderate RV dysfunction. LV is intact. However, unsure if current ECHO result fully explain this degree of anasarca. - Hx liver disease in setting of untreated HCV and prior EtOH abuse - nodular liver and tortuous abdominal veins by CT. However, synthetic function appears intact (normal INR), no ascites by imaging, and normall platelet count. - Potential for thrombosis (i.e. Venous Thrombosis/Hepatic Venous Obstruction), but patient with evidence of diffuse edema and anasarca, not just limited to the abdomen or Lower Extremities. Also on chronic anticoagulation. - No evidence of sepsis/infection, allergic reaction, or inflammation to explain symptoms. Patient is also Hypothyroid but on replacement therapy, with a minimally elevated TSH and normal FT4. - Review of medications with evidence of chronic Pregabalin use - highly doubt as cause for this level of generalized volume overload/anasarca, but Lyrica will be held. - Patient also with hypoalbuminemia in the setting of multiple recent hospitalization. Patient had been eating well, but nursing reports decreased oral intake and loss of appetite today. Prealbumin ordered but also pending as this test is also a send out. Discussed case in detail with [facility]phrology and [place] at [facility] who agrees with above assessment, with Recommendations for the following: - Continue gentle attempts at diuresis - currently with Bumex gtt on hold due to soft blood pressures, which the patient has had over the course of his hospitalization. May actually benefit from transfer to tertiary center for more invasive work-up, including potential Right Heart Cath, CVP monitoring, and in- depth specialty work-up. Ultimately, patient's symptoms may be a multi-factorial picture in the setting of Right sided CHF, some degree of liver dysfunction, hypoalbuminemia, and potential medication side-effect, but current anasarca state is fairly significant and difficult to explain fully. However, as this is his 4th admission, and diuretic need is rapidly increasing, further tertiary work-up may be warranted. (2) Acute kidney injury superimposed on chronic kidney disease: In setting of increasing diuretic use - also with worsening BUN and hypochloremia. Potential prerenal state and intravascular depletion despite overall volume overall. FeNa checked despite diuresis, and returned at 1.25%. Fractional excretion of Urea also checked, but with Urinary BUN not resulted as this test is a send out. Also potential for a Hepatorenal or Cardiorenal Syndrome, but unsure at this point. Creatinine remains elevated at 1.8 but improved and stable. (3) Diabetic peripheral neuropathy: Hold Lyrica as above. (4) Type 2 diabetes mellitus without complication: HgA1C 5.9%. Continue sliding scale coverage. (5) Protein C deficiency: Currently on AC with Apixaban. Patient's weight may preclude the use of this medication - however, a significant amount of Mr. De Jesus's weight may be due to fluid overload state. For now continue Apixaban, with plans to discuss with Hematology soon. (6) Chronic viral hepatitis C: Noted, in setting of prior IVDA, and with previous EtOH abuse and current evidence of a cirrhotic appearing liver by imaging. Will need eventual long-term GI follow-up. (7) Hypothyroidism: TSH minimally elevated with normal FT4. Continue replacement therapy. (8) DVT prophylaxis: Continue anticoagulation. Initiated PPI therapy for GI Prophylaxis as well. (9) Advance directive on file: DNR/DNI. (10) Disposition: Due to lack of bed availability at [facility] [place] was presented to and accepted at [facility] - being transferred this evening. Home Meds and New Rx's Prescriptions: Continued atorvastatin 40 mg Tablet 40 mg PO HS RF: 0 acetaminophen 325 mg Tablet 325 mg PO Q6H PRNRF: 0 carvedilol 3.125 mg Tablet 3.125 mg PO BID RF: 0 citalopram 20 mg Tablet 20 mg PO DAILY AM RF: 0 furosemide [Lasix] 80 mg Tablet 160 mg PO BID RF: 0 docusate sodium [Colace] 100 mg Capsule 10 mg PO BOLUSMAXRATE RF: 0 Eliquis 5 mg Tablet 5 mg PO BID RF: 0 polyethylene glycol 3350 [Miralax] 17 gram Powder In Packet 17 g PO DAILY AM RF: 0 metolazone 5 mg Tablet 5 mg PO BID RF: 0 metolazone 5 mg Tablet 5 mg PO ONCE RF: 0 levothyroxine 25 mcg Tablet 25 mcg PO DAILY RF: 0 levothyroxine 200 mcg Tablet 200 mcg PO DAILY RF: 0 pregabalin [Lyrica] 200 mg Capsule 200 mg PO TID RF: 0 Protein Nutritional Shake Liquid 1 ml RF: 0 sennosides [senna] 8.6 mg Tablet 2 mg PO PRN PRNRF: 0 nystatin [Nystop] 100,000 unit/gram Powder TOPICAL DAILY RF: 0 Discharge Orders Discharge Orders: Discharge Order (Routine); Ordered 02/23/19 Ordered By: Javier Santos DS: Summary Status at Discharge Functional status at discharge: bed bound Overall status at discharge: patient is not back to baseline Mental Status: mental status grossly normal Speech and Movement: speech and movement normal Mood: congruent mood Affect: normal affect Exam Narrative Exam Narrative: General: Patient appears debilitated and chronically ill, asleep but arousable, appropriate with answers and oriented X3, NAD Neck: Supple CV: Regular, nontachycardic, S1S2, 3/6 LLSB murmur appreciated Pulmonary: Decreased breath sounds with crackles bibasilar on limited anterior and lateral exam. Abdomen: + Bowel Sounds, soft, nontender, nondistended Vascular: 3-4+ b/l UE and LE edema that appears worsened Psych: Normal mood and affect. Psych Mental Status: mental status grossly normal Speech and Movement: speech and movement normal Mood: congruent mood Affect: normal affect DS: Data Vitals/I&O Vitals and I&O: Vital Signs Temperature 37.1 C 02/23/19 11:33 Temperature Source Temporal Artery Scan 02/23/19 11:33 Pulse 62 02/23/19 14:01 Pulse 62 02/23/19 14:01 Respiratory Rate 17 02/23/19 14:01 Respiratory Effort Non-Labored 02/23/19 11:33 Respiratory Depth Normal 02/23/19 11:33 Respiratory Pattern Normal 02/23/19 11:33 Blood Pressure 78/36 L 02/23/19 14:01 Blood Pressure Mean 46 02/23/19 14:01 Blood Pressure Position Supine 02/23/19 11:33 Pulse Oximetry 95 02/23/19 07:01 Oxygen Delivery Method Nasal Cannula 02/23/19 11:33 Oxygen Flow Rate 1 02/23/19 11:33 Pain Level 0 02/23/19 09:13 Comment 02/23/19 10:28 Intake & Output 02/22/19 02/23/19 02/23/19 23:59 11:59 23:59 Intake Total 864.733 / 1368.133 908 / 1028 120 / 1028 Output Total 3875 / 5875 280 / 1105 825 / 1105 Balance -3010.267 / -4506.867 628 / -77 -705 / -77 Weight 144.6 kg Intake: IV 264.733 / 288.133 48 / 48 Oral 600 / 1080 860 / 980 120 / 980 Output: Urine 3875 / 5875 280 / 1105 825 / 1105 Other: Urine Color Yellow Yellow Yellow Urine Appearance Clear Clear Clear Comment Passing clear, light yellow urine QS. Pt remains on a Bumex drip. Patient reports mild abd burning. Stool Occult Blood Negative Stool Size Large Stool Characteristics Soft Data Completed and Pending Completed studies during hospitalization [Text1]: Exam(s) 02/17 a RAD:XR chest 2V PA & lateral SYMPTOM/DIAGNOSIS: SOB AP AND LATERAL CHEST: The heart is enlarged. There are large bilateral pleural effusions. There are diffuse bilateral intrapulmonary interstitial infiltrates. The findings are consistent with CHF. -------- Exam(s) a US:US abdomen SYMPTOM/DIAGNOSIS: ANASARCA, HEP C, ? CIRRHOSIS? ABDOMINAL ULTRASOUND: 02/18 Ultrasound examination was performed according to the usual protocol, the examination was technically limited due to the patient's body habitus. Large portions of the liver were nonvisualized. The liver appears mildly enlarged. Note is made of cholelithiasis. There is no gallbladder wall thickening or pericholecystic fluid collection. No biliary dilatation seen. Pancreas is unremarkable in appearance although not well visualized. The left kidney is nonvisualized. Right kidney grossly unremarkable with no obvious hydronephrosis. Spleen is incompletely visualized and may be enlarged. CONCLUSION: Very limited study. Probable hepatosplenomegaly. Cholelithiasis without gallbladder wall thickening or pericholecystic fluid collection to suggest acute process. -------- Exam(s) a US:US echocardiogram Date of study: 02/18/2019 Transthoracic Echocardiography M-mode, complete 2D, complete spectral Doppler, and color Doppler *STUDY CONCLUSIONS* Summary: 1. Left ventricle: The cavity size was moderately dilated. Wall thickness was normal. Systolic function was at the lower limits of normal. The estimated ejection fraction was 50-55%. Wall motion was normal; there were no regional wall motion abnormalities. 2. Ventricular septum: Septal motion showed paradoxical motion. 3. Aortic valve: Mildly calcified annulus. Trileaflet; mildly thickened, mildly calcified leaflets. 4. Mitral valve: There was mild regurgitation. 5. Left atrium: The atrium was severely dilated. 6. Right ventricle: The cavity size was moderately dilated. Wall thickness was normal. Systolic function was moderately reduced. 7. Right atrium: The atrium was severely dilated. 8. Tricuspid valve: There was moderate regurgitation. 9. Pulmonary arteries: Pulmonary systolic pressure was mildly increased. PA peak pressure: 45mm Hg (S). 10. Pericardium, extracardiac: A trivial pericardial effusion was identified posterior to the heart. There was a right pleural effusion. There was a left pleural effusion. Exam(s) 02/20 a US:US upper extremity venous RT SYMPTOMS/DIAGNOSIS: RIGHT ARM SWELLING, ON ANTICOAGULANTS RIGHT UPPER EXTREMITY ULTRASOUND: Edema is noted in the arm. There is no localized fluid collection or drainable abscess. The internal jugular, subclavian, axillary, brachial, basilic and cephalic veins are patent. No thrombus is visible. IMPRESSION: Arm edema. No evidence of deep venous thrombosis. -------- Exam(s) 02/[address]:CT abdomen w SYMPTOMS/DIAGNOSIS: HEPATITIS C, HEPATOMEGALY, ANASARCA, ? CIRRHOSIS ABDOMINAL CT: CT examination of the abdomen was performed with a bolus infusion of 75 cc of Omnipaque 350. Images obtained through the lung bases show moderate bilateral pleural effusions with dependent atelectasis. Cardiac size grossly within normal limits. The patient reportedly has known cirrhosis and anasarca. There is marked diffuse soft tissue edema. Hepatic contour is nodular. No focal hepatic lesion identified. Spleen is enlarged. Pancreas unremarkable in appearance. Upper abdominal tortuous collateral veins noted. Adrenals and kidneys grossly unremarkable. Abdominal aorta of normal diameter. No gross adenopathy seen. No evidence of bowel obstruction. CONCLUSION: Bilateral pleural effusions, anasarca, but little if any abdominal ascites. Upper abdominal tortuous collateral veins noted. Labs on day of discharge: Labs from last 24 hours 02/23/19 02/23/19 02/23/19 07:20 06:14 06:14 WBC 6.37 RBC 3.04 L Hgb 9.1 L Hct 31.1 L MCV 102.3 H MCH 29.9 MCHC 29.3 L RDW 14.7 H Plt Count 197 MPV 12.3 H Immature Gran % 0.0 Neutrophils % 61.7 Lymphocytes % 25.4 Monocytes % 10.4 Eosinophils % 2.5 Basophils % 0.0 Absolute Neutrophils 3.93 Absolute Lymphocytes 1.62 Absolute Monocytes 0.66 Absolute Eosinophils 0.16 Absolute Basophils 0.00 Differential Comment Rbc morph reviewed RBC Morphology See below Polychromasia Present Hypochromasia 1+ Macrocytosis 2+ Sodium 140 Potassium 4.0 Chloride 98 Carbon Dioxide 37.6 H Anion Gap 4.4 BUN 148 H* Creatinine 1.81 H Estimated GFR/1.73 m2 39.57 Glucose 103 H Calcium 8.0 L Magnesium 2.0 Ur Random Creatinine 89.21 U Random Total Protein 70.9 U [place] Prot/Creat Ratio 0.79 Ur Random Sodium 02/22/19 14:50 WBC RBC Hgb Hct MCV MCH MCHC RDW Plt Count MPV Immature Gran % Neutrophils % Lymphocytes % Monocytes % Eosinophils % Basophils % Absolute Neutrophils Absolute Lymphocytes Absolute Monocytes Absolute Eosinophils Absolute Basophils Differential Comment RBC Morphology Polychromasia Hypochromasia Macrocytosis Sodium Potassium Chloride Carbon Dioxide Anion Gap BUN Creatinine Estimated GFR/1.73 m2 Glucose Calcium Magnesium Ur Random Creatinine 16.41 U Random Total Protein U [place] Prot/Creat Ratio Ur Random Sodium 87 PFSH Medical History Acute embolism and thrombosis of unspecified deep veins of left distal lower extremity (Acute) Acute embolism and thrombosis of unspecified deep veins of right lower extremity (Acute) Anasarca (Acute) Cardiomyopathy (Acute) Chronic diastolic (congestive) heart failure (Acute) Chronic kidney disease, unspecified (Acute) Chronic viral hepatitis C (Acute) Constipation, unspecified (Acute) Diabetic peripheral neuropathy (Acute) Hereditary and idiopathic neuropathy (Acute) Hypothyroidism (Chronic) Liver disease, unspecified (Acute) senior care (current) use of anticoagulants (Acute) Pleural effusion, not elsewhere classified (Acute) Protein C deficiency (Acute) Type 2 diabetes mellitus without complication (Acute) Family History Other Protein C deficiency Social History Smoking/Tobacco Use Status: Current every day Tobacco Type: cigarettes Alcohol Intake: former Drug use: Occasionally Substance use type: marijuana What is your relationship status?: never Panel score (0-1 are the most socially isolated patients): 0 Do you feel safe at home: Yes Do you feel safe in your relationship?: Yes Additional Social history: 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
--- NOTE | 2019-02-24 18:00 | PT.INDS ---
Date of service: 02/24/19 PT Notes Inpatient Physical Therapy Discharge Summary Dates: 02/24/2019 Dates of Service: 02/21/2019 through 02/22/2019 This is a clinical summary of care provided on the duration of dates listed above. No charge was made in the completion of this documentation. Referring Doctor: David Shaver MD PT Orders: PT CONSULT: Limited ability Precautions: Fall. Standard. Activity as tolerated. Patient Profile/Admitting Diagnosis: Patient is discharged to tertiary hospital as of 02/23/2019. Patient is a 53-year-old male with past medical history significant for anasarca, cardiomyopathy, congestive heart failure, and Type II DM who presented to the ED on 02/28/2019 with chief complaints of increased shortness of breath and orthopnea. Patient is diagnosed with CHF exacerbation, acute kidney injury, diabetic peripheral neuropathy, protein C deficiency, chronic viral hepatitis, Type II DM, and hypothyroidism. PMHX: Medical History (Updated 02/17/19 @ 17:15 by David Shaver MD) Acute embolism and thrombosis of unspecified deep veins of left distal lower extremity (Acute) Acute embolism and thrombosis of unspecified deep veins of right lower extremity (Acute) Anasarca (Acute) Cardiomyopathy (Acute) Chronic diastolic (congestive) heart failure (Acute) Chronic kidney disease, unspecified (Acute) Chronic viral hepatitis C (Acute) Constipation, unspecified (Acute) Diabetic peripheral neuropathy (Acute) Hereditary and idiopathic neuropathy (Acute) Hypothyroidism (Chronic) Liver disease, unspecified (Acute) termite control technician (current) use of anticoagulants (Acute) Pleural effusion, not elsewhere classified (Acute) Protein C deficiency (Acute) Type 2 diabetes mellitus without complication (Acute) Social History/Home Situation: Patient lives with brother and [id number] in a private home with 4 steps to enter with bilateral rails. He reports that [employer], he was independent with all mobility ADL performance using his FWW. Equipment Owned/DME: FWW Subjective: NT Objective: General Observation: NT Pain: NT Vital Signs: NT ROM: Right Upper Extremity: Shoulder Flexion allows up to 10 degrees. Shoulder abduction allows up to 10 degrees. Elbow flexion allows up to 20 degrees. Wrist flexion WFL. Opening and closing of hand WFL. Left Upper Extremity: Shoulder Flexion allows up to 120 degrees. Shoulder abduction allows up to 100 degrees. Elbow flexion WFL. Wrist flexion WFL. Opening and closing of hand WFL. Right Lower Extremity: Hip flexion about 10 degrees. Hip abduction about 10 degrees. Knee flexion about 10 degrees. Ankle dorsiflexion allows about 5 degrees from a fully plantarflexed position. Ankle plantarflexion about 5 degrees. Left Lower Extremity: Hip flexion WFL. Hip abduction WFL. Knee flexion WFL. Ankle dorsiflexion WFL. Ankle plantarflexion WFL. Strength: Right Upper Extremity: Shoulder flexors 2-/5. Shoulder abductors 2-/5. Elbow flexors 2-/5. Elbow extensors 2-/5. Chassis Mechanic weak but functional. Left Upper Extremity: Shoulder flexors 3+/5. Shoulder abductors 3+/5. Elbow flexors 4-/5. Elbow extensors 4-/5. Chassis Mechanic strong. Right Lower Extremity: Hip flexors 2-/5. Hip abductors 2-/5. Knee flexors 2-/5. Knee extensors 2-/5. Ankle dorsiflexors 2-/5. Ankle plantarflexors 2-/5. Left Lower Extremity:Hip flexors 2-/5. Hip abductors 2-/5. Knee flexors 2-/5. Knee extensors 2-/5. Ankle dorsiflexors 2-/5. Ankle plantarflexors 2-/5. Bed Mobility/Transfers: Unable to assess. Patient with scrotal and penile edema which causes signifcant discomofrt and axiety towards movement. Patient is highly anxious about moving as he states that his catheter hurts him with movement. Will await result of DVT exam to L UE before conducting mobility assessment. Rolling is maximum assist of 2 due to fatigue and pain. Gait: Unable to assess. Patient with scrotal and penile edema which causes signifcant discomofrt and axiety towards movement. Patient is highly anxious about moving as he states that his catheter hurts him with movement. Will await result of DVT exam to L UE before conducting mobility assessment. Balance: Static Sitting: Unable to assess Dynamic Sitting: Unable to assess Static Standing: Unable to assess Dynamic Standing: Unable to assess Assessment: Participation to mobility assessment is prevented by report of fatigue, shortness of breath, and discomfort and anxiety over displacing catheter from significant penile/perianal/scrotal edema. Patient presents with clinical signs and symptoms consistent with current/admitting diagnoses that have resulted to mobility limitations, gait instability, generalized weakness, and impairment of motor control as demonstrated by the following impairment level findings: 1. Decreased strength to B UE/LE major muscle groups 2. Impaired sitting/standing balance 3. Impaired activity tolerance 4. Limitation of joint range of motion in B UE/LE Impairments are contributing to the following functional limitations: 1. Dependent bed mobility skills 2. Increased dependence with transfers 3. Inability to ambulate 4. Increase completion time for mobility ADL performance 5. Increased fall risk 6. Inability to negotiate steps alone safely Patient is assessed as a [id number] high complexity based on the following: History: Patient is a 53-year-old male patient who is dagnosed with Examination: Demonstrable impairment in strength, balance, and range of motion with underlying impairments and functional limitations as documented above Presentation:Evolving Decision Makin high complexity Goals: Goals X1 week 1. Supine-Sit moderate assist 2. Sit-Supine moderate assist 3. Sit-Stand moderate assist 4. Stand-Sit moderate assist 5. Bed-Chair moderate assist 6. Chair-Bed moderate assist 7. Moderate assist of 2 for gait on level surface with use of least restrictive device for at least 30 feet without report of pain nor dyspnea 8. Fair static and dynamic standing balance/tolerance DISCHARGE RECOMMENDATIONS: Patient will benefit from returning to [facility] facility placement in order to progress mobility level, strength, and balance to reduce fall risk and maximize functional independence. TREATMENT CODE/TIME: ANA Thank you very much for this referral. Irma Carey PT, DPT, CLT [facility]
[2019-02-25 11:45] LABS: Prealbumin 8 mg/dL (20-40)
== END 2019-02-23 19:53 | disposition short-term general hospital (02) | DRG 945 ==
LOC: ER 16:59 → ICU 18:19
PROVIDERS: Family Medicine; Internal Medicine; Admitting Provider Internal Medicine; Emergency Provider Physician Assistant; PCP Family Medicine; Visit Provider Internal Medicine
DX: R60.1 Generalized edema (principal); N17.9 Acute kidney failure, unspecified; D68.59 Other primary thrombophilia; I42.9 Cardiomyopathy, unspecified; I50.811 Acute right heart failure; I27.81 Cor pulmonale (chronic); I27.20 Pulmonary hypertension, unspecified; E88.09 Other disorders of plasma-protein metabolism, not elsewhere classified; E87.8 Other disorders of electrolyte and fluid balance, not elsewhere classified; F10.11 Alcohol abuse, in remission; N18.9 Chronic kidney disease, unspecified; E11.22 Type 2 diabetes mellitus with diabetic chronic kidney disease; E11.42 Type 2 diabetes mellitus with diabetic polyneuropathy; I95.9 Hypotension, unspecified; R04.0 Epistaxis; B18.2 Chronic viral hepatitis C; E03.9 Hypothyroidism, unspecified; Z79.01 Long term (current) use of anticoagulants; F17.210 Nicotine dependence, cigarettes, uncomplicated; I08.1 Rheumatic disorders of both mitral and tricuspid valves; Z86.718 Personal history of other venous thrombosis and embolism
CPT/HCPCS: 36415; 80048; 80053; 85027; 87081; 93005; 97163; 97530; 99223; 99232; 99233; 99239; 99285; 71046; 74160; 76700; 81003; 82040; 82565; 82607; 82746; 83036; 83735; 83880; 84100; 84134; 84156; 84300; 84439; 84443; 84484; 84540; 85025; 85610; 85730; 93010; 93306; 93971; J0610; J1940; J2060; J3490; L4361